=== PATIENT | male | born 1985 | race Caucasian/White ===

== ENCOUNTER 2019-11-01 09:32 | Emergency (ER) | payer BC, SELFPAY ==
[2019-11-01 09:42] VITALS: BP 135/91; PULSE 100; TEMP 37.2; O2SAT 99
[2019-11-01 10:00] LABS: Basophils Percent Auto 0.3 % (0.2-1.2); Eosinophils Absolute Auto 0.2 K/mm3 (0-0.3); Eosinophils Percent Auto 1.7 % (0-4.4); Hemoglobin 17.5 g/dL (14.0-18.0); Immature Granulocyte Absolute 0.06 K/mm3 (0.00-0.031); Immature Granulocyte Percent A 0.7 % (0-0.5); Lymphocytes Absolute Auto 1.45 K/mm3 (0.9-3.2); Lymphocytes Percent Auto 16.5 % (18.3-44.2); Mean Corpuscular Hemoglobin 29.4 pg (26-34); Mean Corpuscular Volume 88.9 fl (80-100); Mean Platelet Volume 9.3 fl (7.4-10.4); Monocytes Absolute Auto 0.6 K/mm3 (0.1-0.6); Monocytes Percent Auto 7.3 % (2.6-8.5); Neutrophils Absolute Auto 6.5 K/mm3 (1.3-6.7); Neutrophils Percent Auto 73.5 % (45.5-73.1); Platelet Count Result 390 k/mm3 (150-375); Red Blood Count 5.96 M/mm3 (4.6-6.20); Red Cell Distribution Width 14.7 % (11.5-14.5); White Blood Count 8.8 K/mm3 (4.5-10.0)
[2019-11-01 10:11] LABS: Alanine Aminotransferase 29 U/L (4-50); Albumin Level 4.2 g/dL (3.5-5.1); Alkaline Phosphatase 75 U/L (38-126); Anion Gap 6 mmol/L (8-16); Aspartate Amino Transferase 35 U/L (17-59); Bilirubin,Total 1.1 mg/dL (0.2-1.3); Blood Urea Nitrogen 11 mg/dL (9-20); Calcium 9.2 mg/dL (8.4-10.2); Carbon Dioxide 31 mmol/L (22-30); Chloride 99 mmol/L (98-107); Estimated CRCL calculation 77 ml/min; Estimated Glomerular Filt Rate > 60; Glucose 85 mg/dL (75-110); Lipase 86 U/L (23-300); Potassium 5.1 mmol/L (3.4-5.0); Sodium 136 mmol/L (137-145)
[2019-11-01] MEDS: ONDANSETRON INJ 4 MG/2 ML VIAL IV PUSH (10:34)
[2019-11-01] MEDS: SODIUM CHLORIDE 0.9% IV 1,000 ML 999 ML IV CONT (10:34)
[2019-11-01 10:49] LABS: Add Urine Microscopic? YES; Appearance Urine Clear (Clear); Bacteria Urine Trace /hpf; Bilirubin Urine 1+ (Negative); Blood Urine Negative (Negative); Color Urine Yellow (Yellow); Glucose Urine UA Negative (Negative); Ketones Urine Negative (Negative); Leukocyte Esterase Ur Trace LEU/UL (Negative); Mucus Urine Rare /lpf; Nitrate Urine Negative (Negative); Protein Urine 1+ mg/dL (Negative); Specific Grav Ur 1.028 (1.001-1.035); WBC Urine 0-3 /hpf
--- NOTE | 2019-11-01 11:03 | ED.NAVMDI ---
HPI - Nausea/Vomiting/Diarrhea General Chief complaint: Nausea/Vomiting/Diarrhea Stated complaint: n/v, headache, fatigue Time Seen by Provider: 11/01/19 10:11 Source: patient and family Mode of arrival: ambulatory Limitations: no limitations History of Present Illness HPI Narrative: Patient presents with chief complaint of diffuse abdominal pain accompanied by nausea and a few episodes of vomiting that [place] Patient states that he has chronic abdominal symptoms which is managed by Dr. Willis at [facility]. Patient reports having negative scope with only findings of slight inflammation. He states that he has been started on amitriptyline and pantoprazole which has seemed to help his symptoms until [place] Patient reports sensations of gassiness and bloatedness. Patient denies blood in his vomit. Patient denies fever chills or diarrhea. Patient denies blood or mucus in his stool. Patient states that he went to work but was feeling fatigued and slightly dehydrated so he was told to come to be evaluated. 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 Related Data Home Medications Medication Instructions Recorded Confirmed adalimumab [Humira] 0 SUBCUT .COMPLEX 11/01/19 lactobacillus combination no.4 3,000 mmu cells PO DAILY 11/01/19 [Probiotic] nortriptyline 11/01/19 pantoprazole PO 11/01/19 Allergies Allergy/AdvReac Type Severity Reaction Status Date / Time No Known Allergies Allergy Verified 11/01/19 09:47 Review of Systems Review of Systems: Narrative: CONSTITUTIONAL: Denies fever, chills, or sweats. EYES: Denies visual changes, redness, or discharge. ENT: Denies rhinorrhea, congestion, sore throat, or otalgia. CARDIOVASCULAR: Denies chest pain, palpitations, or edema. RESPIRATORY: Denies cough or dyspnea. GASTROINTESTINAL: Reports abdominal pain, nausea, vomiting, denies diarrhea. GENITOURINARY: Denies dysuria or hematuria. SKIN: Denies rash or itching. MUSCULOSKELETAL: Denies back pain, joint pain, or myalgia. NEUROLOGIC: Denies headache, numbness, dizziness, or weakness. [facility] Social History Social History Gender identity (if verbalized by the patient): Male Exam Narrative: Exam Narrative: GENERAL: Well-appearing, well-nourished, and in no acute distress. HEAD: Normocephalic, atraumatic. EYES: PERRLA and EOMI. ENT: Nares clear, no rhinorrhea or epistaxis. Mucous membranes moist. Oropharynx without tonsillar hypertrophy exudate or other lesions. Bilateral TMs pearly moulton nonbulging NECK: Supple. Range of motion intact. CHEST: Clear to auscultation. No respiratory distress. No wheezes rales or rhonchi HEART: Regular rate and rhythm. ABDOMEN: Soft, mildly diffusely tender with palpation, nondistended, normal active bowel sounds. No ascites appreciated. EXTREMITIES: Normal range of motion. No edema. SKIN: Warm, dry, no rash. NEURO: No focal deficits. Alert and oriented x3. PSYCH: Normal mood and affect. Course Vital Signs Vital signs: Vital Signs Temperature 98.9 F 11/01/19 09:42 Pulse Rate 100 11/01/19 09:42 Blood Pressure 135/91 H 11/01/19 09:42 Pulse Oximetry 99 11/01/19 09:42 Temperature 98.9 F 11/01/19 09:42 Pulse Rate 77 11/01/19 11:24 Respiratory Rate 18 11/01/19 11:24 Blood Pressure 135/75 11/01/19 11:24 Pulse Oximetry 98 11/01/19 11:24 MDM - Nausea/Vomiting/Diarrhea MDM Narrative Medical decision making narrative: Patient's lab work and urinalysis are insignificant. Patient states that his symptoms are typical of his flares. 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 Patient has been given medications to help with his symptoms and will be discharged with Zofran for nausea. Patient instructed to contact his gastroenterolo
[2019-11-01 11:24] VITALS: BP 135/75; PULSE 77; RESP 18; O2SAT 98
== END 2019-11-01 11:25 | disposition home or self-care (01) ==
PROVIDERS: Emergency Provider Emergency Medicine
DX: K52.9 Noninfective gastroenteritis and colitis, unspecified (principal)
CPT/HCPCS: 36415; 80053; 81001; 83690; 85025; 96365; 96375; 99284; J0131; J2405; J7030

== ENCOUNTER 2020-11-21 09:45 | Outpatient (CLI) | payer BC, SELFPAY ==
--- NOTE | ~2020-11-21 | NM_ITS ---
EXAM: NM gastric emptying study DATE: 11/21/2020 12:56 INDICATION: Abdominal distention TECHNIQUE: A gastric emptying study was performed using the methodology of Mustapha BOWDEN, et al. J Nucl Med 2007; 48:568-572. The patient was given a meal consisting of 2 scrambled eggs labeled with 0.996 mCi Tc-99m sulfur colloid, 2 slices of toast, two packages of jam, and approximately 120 mL of water . Simultaneous anterior and posterior 1-min images of the abdomen were obtained with the patient supi ne at multiple time points over a total period of 4 hours. The geometric mean of anterior and posteri or views was determined, and the percentage retention was calculated for each time point. COMPARISON: None. FINDINGS: Gastric retention of the radiotracer-labeled meal was 64%, 48%, and 19% at the 1-hour, 2-hour, and 4- hour time points, respectively. With this technique, apparent rapid gastric emptying is suggested by <30% gastric retention at 1 hour. Delayed gastric emptying is defined by gastric retention of >90% at 1 hour, >60% retention at 2 hours, or >10% retention at 4 hours. IMPRESSION: 1. Delayed gastric emptying. Reviewed, dictated and finalized at location [facility].
== END 2020-11-21 09:46 | disposition home or self-care (01) ==
PROVIDERS: PCP Internal Medicine; Visit Provider Nurse Practitioner Family
DX: R14.0 Abdominal distension (gaseous) (principal); K30 Functional dyspepsia
CPT/HCPCS: 78264; A9541

== ENCOUNTER → 2021-04-05 02:49 | Outpatient (CLI) | payer BC, SELFPAY ==
[2021-04-05 18:24] LABS: SARS-CoV-2 RNA PCR Negative
== END ==
PROVIDERS: PCP Internal Medicine; Visit Provider Internal Medicine Gastroenterology
DX: Z01.812 Encounter for preprocedural laboratory examination (principal); Z20.822 Contact with and (suspected) exposure to COVID-19
CPT/HCPCS: C9803; U0003; U0005

== ENCOUNTER 2021-04-06 11:07 | Emergency (ER) | payer BC, SELFPAY ==
--- NOTE | ~2021-04-06 | CT_ITS ---
EXAMINATION: CT abdomen pelvis w con DATE: 04/06/2021 14:56 INDICATION: Right lower quadrant abdominal pain. Nausea. History of inguinal hernia. TECHNIQUE: Computed tomography (CT) of the abdomen and pelvis was performed with 100 cc Omnipaque 350 intravenous contrast. Automated exposure control and iterative reconstruction technique were employe d. Exam dose: 319.67 mGy-cm total exam DLP. COMPARISON: None. FINDINGS: The lung bases are clear of infiltrate or consolidation. Normal heart size. No pericardial or pleural effusion. The liver, gallbladder, bile ducts, pancreas, pancreatic duct and spleen are normal. Normal morphology of the adrenal glands. No renal mass lesion or urinary tract calculus or hydroureteronephrosis. The urinary bladder and pros leyva gland and seminal vesicles are unremarkable. Normal caliber of the abdominal aorta. No intraperitoneal or retroperitoneal or pelvic mass lesion or adenopathy or ascites. Normal appendix. No bowel obstruction, bowel wall thickening, pneumatosis or intraperitoneal free air . Included skeletal structures are unremarkable. IMPRESSION: Normal appendix Reviewed, dictated and finalized at [facility]. Reviewed, dictated and finalized at location A. OL BASED THERAPIST IMPRESSION: Normal appendix
[2021-04-06 11:11] VITALS: BP 124/88; PULSE 67; RESP 16; TEMP 36.9; O2SAT 99
--- NOTE | 2021-04-06 13:18 | ED.ABDPAIN ---
HPI - Abdominal Pain General Chief Complaint: Abdominal Pain Stated Complaint: hernia Time Seen by Provider: 04/06/21 13:14 Source: patient Limitations: no limitations History of Present Illness HPI narrative: Patient is 35 years old white male presents with right lower quadrant pain radiating to right testicle started 2 days ago. History of right inguinal hernia. Patient denies any fever, chills, vomiting, diarrhea, constipation, urinary symptoms. Patient reports that the pain is associated with nausea Related Data Home Medications Medication Instructions Recorded Confirmed adalimumab [Humira] 0 SUBCUT .COMPLEX 11/01/19 10/16/20 Allergies Allergy/AdvReac Type Severity Reaction Status Date / Time No Known Allergies Allergy Verified 04/06/21 13:32 Review of Systems Review of Systems: CONSTITUTIONAL: Denies fever, chills, or sweats. EYES: Denies visual changes, redness, or discharge. ENT: Denies rhinorrhea, congestion, sore throat, or otalgia. CARDIOVASCULAR: Denies chest pain, palpitations, or edema. RESPIRATORY: Denies cough or dyspnea. GASTROINTESTINAL: Right lower quadrant pain GENITOURINARY: Denies dysuria or hematuria. SKIN: Denies rash or itching. MUSCULOSKELETAL: Denies back pain, joint pain, or myalgia. NEUROLOGIC: Denies headache, numbness, or weakness. PSYCHIATRIC: Denies anxiety or depression. 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 No organomegaly, quiet bowel sounds, testicular exam showed no abnormality except for mild tenderness right testicle, no mass, no redness or rash Vascular: Normal peripheral pulses, normal capillary refill. 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 as tested, no gross motor deficit Course Course Emergency Course: Stable Consultations Consultation #1: DR KILGORE Asked patient to call my office Thursday Date: 04/06/21 Time: 16:40 Vital Signs Vital signs: Vital Signs Temperature 36.9 C 04/06/21 11:11 Pulse Rate 67 04/06/21 11:11 Respiratory Rate 16 04/06/21 11:11 Blood Pressure 124/88 04/06/21 11:11 Pulse Oximetry 99 04/06/21 11:11 Temperature 36.9 C 04/06/21 11:11 Pulse Rate 54 L 04/06/21 15:20 Respiratory Rate 16 04/06/21 15:20 Blood Pressure 117/68 04/06/21 15:20 Pulse Oximetry 97 04/06/21 15:20 MDM - Abdominal Pain MDM Narrative Medical decision making narrative: Reducible inguinal hernia Differential Diagnosis Differential diagnosis: Likely abdominal pain, acute appendicitis, calculus of kidney,
[2021-04-06 13:28] VITALS: BP 125/73; PULSE 57; RESP 18; O2SAT 96
--- NOTE | 2021-04-06 13:35 | PC.NURSE ---
Dr. Tamez at bedside, small right inguinal hernia reduced manually.
[2021-04-06 13:58] LABS: Basophils Percent Auto 0.5 % (0.2-1.2); Eosinophils Percent Auto 0.5 % (0-4.4); Hematocrit 49.9 % (42.0-52.0); Hemoglobin 17.4 g/dL (14.0-18.0); Immature Granulocyte Absolute 0.01 K/mm3 (0.00-0.031); Immature Granulocyte Percent A 0.2 % (0-0.5); Lymphocytes Absolute Auto 1.29 K/mm3 (0.9-3.2); Lymphocytes Percent Auto 21.1 % (18.3-44.2); Mean Corpuscular HGB Conc 34.9 g/dl (32-36); Mean Corpuscular Hemoglobin 30.7 pg (26-34); Mean Corpuscular Volume 88.2 fl (80-100); Monocytes Absolute Auto 0.5 K/mm3 (0.1-0.6); Monocytes Percent Auto 7.7 % (2.6-8.5); Neutrophils Absolute Auto 4.3 K/mm3 (1.3-6.7); Platelet Count Result 217 k/mm3 (150-375); Red Blood Count 5.66 M/mm3 (4.6-6.20); Red Cell Distribution Width 11.8 % (11.5-14.5); White Blood Count 6.1 K/mm3 (4.5-10.0)
[2021-04-06] MEDS: SODIUM CHLORIDE 0.9% IV 1,000 ML 999 ML IV CONT (14:08)
[2021-04-06 14:28] LABS: Add Urine Microscopic? YES; Appearance Urine Clear (Clear); Bilirubin Urine Negative (Negative); Blood Urine Negative (Negative); Color Urine Yellow (Yellow); Glucose Urine UA Negative (Negative); Ketones Urine Negative (Negative); Leukocyte Esterase Ur Negative LEU/UL (Negative); Mucus Urine Rare /lpf; Nitrate Urine Negative (Negative); Protein Urine Negative (Negative); Specific Grav Ur 1.019 (1.001-1.035); Squamous Epithelial Cell Urine Rare /hpf (Few); Urobilinogen Urine Negative mg/dL (<2.0)
[2021-04-06 14:33] LABS: Alanine Aminotransferase 36 U/L (4-50); Albumin Level 4.5 g/dL (3.5-5.1); Alkaline Phosphatase 67 U/L (38-126); Anion Gap 4 mmol/L (8-16); Aspartate Amino Transferase 32 U/L (17-59); Bilirubin,Total 0.9 mg/dL (0.2-1.3); Blood Urea Nitrogen 15 mg/dL (9-20); Calcium 9.9 mg/dL (8.4-10.2); Carbon Dioxide 30 mmol/L (22-30); Chloride 104 mmol/L (98-107); Estimated CRCL calculation 76 ml/min; Estimated Glomerular Filt Rate > 60; Glucose 90 mg/dL (65-110); Lipase 73 U/L (23-300); Potassium 4.1 mmol/L (3.4-5.0); Sodium 138 mmol/L (137-145)
[2021-04-06 15:20] VITALS: BP 117/68; PULSE 54; RESP 16; O2SAT 97
--- NOTE | 2021-04-06 15:21 | PC.NURSE ---
Pt states pain has improved somewhat and I don't feel like I was kicked in the balls anymore . Made aware of pending results. Denies needs at present.
--- NOTE | 2021-04-06 15:49 | PC.NURSE ---
Pt's IV dc'd, discussed d/c instructions with patient. Explained need to follow up with Dr. Pandey. Pt reports that pain continues to right inguinal area and he feels like the area may be swollen again. Dr. Tamez made aware and at bedside, and again right inguinal hernia reduced. Pt had increased pain with reduction.
--- NOTE | 2021-04-06 15:51 | PC.NURSE ---
Dr. Tamez preparing to contact Dr. Pandey.
--- NOTE | 2021-04-06 16:47 | PC.NURSE ---
Note Dr. Tamez speaking with patient after speaking with Dr. Pandey.
== END 2021-04-06 16:50 | disposition home or self-care (01) ==
PROVIDERS: Emergency Provider Emergency Medicine; PCP Internal Medicine
DX: K40.90 Unilateral inguinal hernia, without obstruction or gangrene, not specified as recurrent (principal)
CPT/HCPCS: 36415; 74177; 80053; 81001; 83690; 85025; 96360; 99284; J7030; Q9967

== ENCOUNTER 2021-04-08 00:48 | Day surgery (SDC) | payer BC, SELFPAY ==
[2021-03-27 09:48] VITALS: BMI 25.9
[2021-04-08 10:28] VITALS: BP 118/81; PULSE 69; RESP 16; TEMP 36.6; O2SAT 98; BMI 25.4
--- NOTE | 2021-04-08 10:30 | P.PNAN_ITS ---
Anes - Initial Pre Proc Eval Procedure: Operation Date: 04/08/21 11:30 Proposed Procedures p Esophagogastroduodenoscopy - Vasyl Cueva MD Date/Time: 04/08/21 10:30 Surgeon: Vasyl Cueva MD Pre Op Diagnosis: abdominal distension Patient Data Age: 35 Gender: M Height: 1.73 m Weight: 76 kg Last Vital Signs Temp 36.6 C 04/08/21 10:28 Pulse 69 04/08/21 10:28 Resp 16 04/08/21 10:28 BP 118/81 04/08/21 10:28 Pulse Ox 98 04/08/21 10:28 Allergies Allergy/AdvReac Type Severity Reaction Status Date / Time No Known Allergies Allergy Verified 04/08/21 10:27 Home Medications Medication Instructions Recorded Confirmed Type adalimumab [Humira] 0 SUBCUT .COMPLEX 11/01/19 10/16/20 History zolpidem 12.5 mg tablet,extended 12.5 mg PO QHS #30 tablet 02/18/21 03/27/21 Rx release,multiphase pantoprazole 40 mg tablet,delayed 40 mg PO DAILY #90 tablet 03/20/21 03/27/21 Rx release Patient hx anesthesia problems: none Family hx anesthesia problems: none Results Review: All pre-operative results and documents have been reviewed as part of the pre-operative evaluation. 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 Informed Consent: The patient's anesthetic plan and its attendant risks and benefits were discussed with the patient/family/POA. Questions were solicited and answers provided to the satisfaction of the patient/family/POA.
[2021-04-08] MEDS: LACTATED RINGERS 1,000 ML 150 ML IV CONT (10:34)
--- NOTE | 2021-04-08 11:09 | PM.HPGS ---
History of Present Illness History of Present Illness Consent: Risks, benefits, and alternatives have been discussed and questions answered. Patient agrees to proceed with procedure. Chief complaint: abdominal distension Narrative: Ronald Lizama is a 35 year old male with bloating and abdominal distension after eating anything, had gastritis about 2 years ago using pantoprazole. History of psoriasis on humira, had normal CT scan a/p, GES showed gastroparesis but never used reglan. Serology for celiac normal. Review of Systems Constitutional: Constitutional: Denies headache(s) and Denies weakness Eyes: Eyes: Denies blurry vision ENT: Reports Normal hearing present, Denies headache(s) and Denies neck pain Cardiovascular: Cardiovascular: Denies chest pain and Denies dyspnea Respiratory: Respiratory: Denies dyspnea Gastrointestinal: Gastrointestinal: Reports no additional gastrointestinal complaints Genitourinary: Genitourinary: Denies dysuria Musculoskeletal: Musculoskeletal: Denies neck pain Integumentary/Breasts: Skin/Breast: Denies dry skin Neurologic: Reports Normal hearing present, Denies headache(s) and Denies weakness Psychiatric: Psychiatric: Denies anxiety Endocrine: Endocrine: Denies change in body appearance Hematologic/Lymphatic: Hematologic/Lymphatic: Denies easy bleeding Allergic/Immunologic: Allergic/Immunologic: Denies urticaria PMF Past Medical History Medical History (Updated 04/08/21 @ 11:10 by Vasyl Cueva MD) Gastroparesis Surgical History Surgical History H/O excision of mass 08/09/20 excision of back cyst H/O umbilical hernia repair 1993 Family History Family History Other Cerebrovascular accident Diabetes mellitus Throat cancer Social History Social History Smoking status: Never smoker Second hand tobacco smoke exposure: Yes Alcohol intake: never Substance use: never Substance use type: does not use 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 Gender identity (if verbalized by the patient): Male Spiritual care concerns: No Meds Home Medications and Allergies Home Medications Medication Instructions Recorded Confirmed Type adalimumab [Humira] 0 SUBCUT .COMPLEX 11/01/19 10/16/20 History zolpidem 12.5 mg tablet,extended 12.5 mg PO QHS #30 tablet 02/18/21 03/27/21 Rx release,multiphase pantoprazole 40 mg tablet,delayed 40 mg PO DAILY #90 tablet 03/20/21 03/27/21 Rx release Allergies Allergy/AdvReac Type Severity Reaction Status Date / Time No Known Allergies Allergy Verified 04/08/21 10:27 Vital Signs Vital Signs - 24 hr 04/08/21 10:28 Temperature 98 F Pulse Rate 69 Respiratory Rate 16 Blood Pressure 118/81 Pulse Oximetry 98 Exam Const: General: comfortable and no acute distress HENMT: General nose exam: Normal nares present Eyes: General: appearance normal, both eyes and all related structures Neck: Neck: no JVD Resp: Auscultation: clear to auscultation bilaterally Cardio: Rate: regular rate Rhythm: regular rhythm GI: Inspection: non-distended GI Palp: Yes Soft to palpation Skin: General skin exam: normal color Neuro: General: gait normal Speech: normal speech Extrem: General: normal to inspection Psych: Mental Status: mental status grossly normal Assessment and Plan Assessment and plan (1) Bloating: Code(s): R14.0 - Abdominal distension (gaseous) Status: Acute Assessment and Plan: egd with bx, probably related to gastroparesis (2) Gastroparesis: Code(s): K31.84 - Gastroparesis Status: Acute Assessment and Plan: will start low dose of reglan before meals to see if will help with symptoms with follow-up office.
[2021-04-08] MEDS: BENZOCAINE (*SP) 60 ML SPRAY CAN (HURRICAINE) 1 SPRAY MUCOUS MEM (11:13)
[2021-04-08 11:21] VITALS: BP 112/84; PULSE 87; RESP 16; O2SAT 98
[2021-04-08 11:31] VITALS: BP 110/83; PULSE 77; RESP 16; O2SAT 100
[2021-04-08 11:41] VITALS: BP 113/82; PULSE 66; RESP 12; O2SAT 97
== END 2021-04-08 11:51 | disposition home or self-care (01) ==
PROVIDERS: PCP Internal Medicine; Visit Provider Internal Medicine Gastroenterology
PROC: 0DJ08ZZ Inspection of Upper Intestinal Tract, Via Natural or Artificial Opening Endoscopic (ICD-10-PCS; CPT 43235; principal; 2021-04-08 11:30)
DX: R14.0 Abdominal distension (gaseous) (principal); K31.84 Gastroparesis; L40.9 Psoriasis, unspecified; Z79.899 Other long term (current) drug therapy
CPT/HCPCS: 43239; 88305; J2704; J7120

== ENCOUNTER 2021-06-27 17:31 | Outpatient (CLI) | payer BC, SELFPAY | END 2021-06-27 17:32 | disposition home or self-care (01) | LOC: ANHLAB 17:33 | PROVIDERS: PCP Internal Medicine; Visit Provider Internal Medicine | DX: Z20.2 Contact with and (suspected) exposure to infections with a predominantly sexual mode of transmission (principal) | CPT/HCPCS: 87491; 87591 ==

== ENCOUNTER 2021-09-12 15:08 | Outpatient (CLI) | payer BC, SELFPAY ==
--- NOTE | ~2021-09-12 | XR_ITS ---
XR abdomen/kub 1V DATE: 09/12/2021 15:33 INDICATION: Diffuse abdominal pain for years. Vomiting, diarrhea. TECHNIQUE: AP projection, 2 views COMPARISON: 04/06/2019 CT abdomen pelvis FINDINGS: Normal heart size. Lung bases are clear. Associated as are intact. No visceromegaly is detected. No significant abnormal calcification. No andreea dence of bowel obstruction. Included skeletal structures are unremarkable. IMPRESSION: No significant abnormality Reviewed, dictated and finalized at [facility]. Reviewed, dictated and finalized at location [facility]. IMPRESSION: No significant abnormality
== END 2021-09-12 15:09 | disposition home or self-care (01) ==
PROVIDERS: PCP Internal Medicine; Visit Provider Nurse Practitioner
DX: R10.9 Unspecified abdominal pain (principal)
CPT/HCPCS: 74018

== ENCOUNTER 2021-10-28 01:07 | Day surgery (SDC) | payer BC, SELFPAY ==
[2021-10-16 13:36] VITALS: BMI 25.2
[2021-10-28 11:42] VITALS: BP 122/74; PULSE 95; RESP 18; TEMP 36.4; O2SAT 98; BMI 23.3
[2021-10-28] MEDS: LACTATED RINGERS 1,000 ML 150 ML IV CONT (11:51)
--- NOTE | 2021-10-28 12:03 | P.PNAN_ITS ---
Anes - Initial Pre Proc Eval Procedure: Operation Date: 10/28/21 13:00 Proposed Procedures p Colonoscopy - Vasyl Cueva MD Date/Time: 10/28/21 12:03 Surgeon: Vasyl Cueva MD Pre Op Diagnosis: rectal bleeding Patient Data Age: 36 Gender: M Height: 1.7 m Weight: 67.5 kg Last Vital Signs Temp 97.6 F 10/28/21 11:42 Pulse 95 10/28/21 11:42 Resp 18 10/28/21 11:42 BP 122/74 10/28/21 11:42 Pulse Ox 98 10/28/21 11:42 O2 Del Method Room Air 10/28/21 11:42 Allergies Allergy/AdvReac Type Severity Reaction Status Date / Time No Known Allergies Allergy Verified 10/28/21 11:41 Home Medications Medication Instructions Recorded Confirmed Type pantoprazole 40 mg tablet,delayed 40 mg PO DAILY #90 tabs 08/22/21 10/16/21 Rx release prucalopride 1 mg tablet 2 mg PO DAILY 1 month #60 tabs 09/12/21 10/16/21 Rx (Motegrity) ixekizumab 80 mg/mL subcutaneous 80 mg subcut MONTHLY 10/16/21 10/16/21 History auto-injector (Taltz Autoinjector) zolpidem 12.5 mg tablet,extended 12.5 mg PO HS 10/16/21 10/16/21 History release,multiphase Patient hx anesthesia problems: none Family hx anesthesia problems: none Results Review: All pre-operative results and documents have been reviewed as part of the pre- operative evaluation. [facility] Past Medical History Medical History (Updated 10/17/21 @ 11:56 by Akash Tapia DO) Constipation Gastroparesis GERD (gastroesophageal reflux disease) Irritable bowel syndrome with constipation Stool mucus Surgical History Surgical History H/O excision of mass 08/09/20 excision of back cyst H/O umbilical hernia repair 1993 Family History Family History Mother Cerebrovascular accident COPD (chronic obstructive pulmonary disease) Other Diabetes mellitus Throat cancer Social History Social History Smoking status: Never smoker Second hand tobacco smoke exposure: Yes Alcohol intake: never Substance use: never Substance use type: does not use Living arrangements: with family 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 Informed Consent: The patient's anesthetic plan and its attendant risks and benefits were discussed with the patient/family/POA. Questions were solicited and answers provided to the satisfaction of the patient/family/POA.
--- NOTE | 2021-10-28 12:29 | PM.HPGS ---
History of Present Illness History of Present Illness Consent: Risks, benefits, and alternatives have been discussed and questions answered. Patient agrees to proceed with procedure. Chief complaint: rectal bleeding Narrative: Ronald Lizama is a 36 year old male with gastroparesis, bloating and ibs-constipation, insurance did not approve motegrity Review of Systems Constitutional: Constitutional: Denies headache(s) and Denies weakness Eyes: Eyes: Denies blurry vision ENT: Reports Normal hearing present, Denies headache(s) and Denies neck pain Cardiovascular: Cardiovascular: Denies chest pain and Denies dyspnea Respiratory: Respiratory: Denies dyspnea Gastrointestinal: Gastrointestinal: Reports no additional gastrointestinal complaints Genitourinary: Genitourinary: Denies dysuria Musculoskeletal: Musculoskeletal: Denies neck pain Integumentary/Breasts: Skin/Breast: Denies dry skin Neurologic: Reports Normal hearing present, Denies headache(s) and Denies weakness Psychiatric: Psychiatric: Denies anxiety Endocrine: Endocrine: Denies change in body appearance Hematologic/Lymphatic: Hematologic/Lymphatic: Denies easy bleeding Allergic/Immunologic: Allergic/Immunologic: Denies urticaria PMF Past Medical History Medical History (Updated 10/17/21 @ 11:56 by Akash Tapia DO) Constipation Gastroparesis GERD (gastroesophageal reflux disease) Irritable bowel syndrome with constipation Stool mucus Surgical History Surgical History H/O excision of mass 08/09/20 excision of back cyst H/O umbilical hernia repair 1993 Family History Family History Mother Cerebrovascular accident COPD (chronic obstructive pulmonary disease) Other Diabetes mellitus Throat cancer Social History Social History Smoking status: Never smoker Second hand tobacco smoke exposure: Yes Alcohol intake: never Substance use: never Substance use type: does not use Living arrangements: with family 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 Gender identity (if verbalized by the patient): Male Spiritual care concerns: No Meds Home Medications and Allergies Home Medications Medication Instructions Recorded Confirmed Type pantoprazole 40 mg tablet,delayed 40 mg PO DAILY #90 tabs 08/22/21 10/16/21 Rx release prucalopride 1 mg tablet 2 mg PO DAILY 1 month #60 tabs 09/12/21 10/16/21 Rx (Motegrity) ixekizumab 80 mg/mL subcutaneous 80 mg subcut MONTHLY 10/16/21 10/16/21 History auto-injector (Taltz Autoinjector) zolpidem 12.5 mg tablet,extended 12.5 mg PO HS 10/16/21 10/16/21 History release,multiphase Allergies Allergy/AdvReac Type Severity Reaction Status Date / Time No Known Allergies Allergy Verified 10/28/21 11:41 Vital Signs Vital Signs - 24 hr 10/28/21 11:42 Temperature 97.6 F Pulse Rate 95 Respiratory Rate 18 Blood Pressure 122/74 Pulse Oximetry 98 Oxygen Delivery Room Air Exam Const: General: comfortable and no acute distress HENMT: General nose exam: Normal nares present Eyes: General: appearance normal, both eyes and all related structures Neck: Neck: no JVD Resp: Auscultation: clear to auscultation bilaterally Cardio: Rate: regular rate Rhythm: regular rhythm GI: Inspection: non-distended GI Palp: Yes Soft to palpation Skin: General skin exam: normal color Neuro: General: gait normal Speech: normal speech Extrem: General: normal to inspection Psych: Mental Status: mental status grossly normal Assessment and Plan Assessment and plan (1) Abdominal pain: Code(s): R10.9 - Unspecified abdominal pain Status: Acute (2) Constipation: Code(s): K59.00 - Constipation, unspecified Status: Acute Assessment and Plan
[2021-10-28 12:54] VITALS: BP 97/61; PULSE 73; RESP 20; O2SAT 97
[2021-10-28 13:04] VITALS: BP 105/79; PULSE 59; RESP 20; O2SAT 99
[2021-10-28 13:14] VITALS: BP 110/75; PULSE 74; RESP 17; O2SAT 99
== END 2021-10-28 13:24 | disposition home or self-care (01) ==
PROVIDERS: PCP Internal Medicine; Visit Provider Internal Medicine Gastroenterology
PROC: 0DJD8ZZ Inspection of Lower Intestinal Tract, Via Natural or Artificial Opening Endoscopic (ICD-10-PCS; CPT 45378; principal; 2021-10-28 13:00)
DX: Z12.11 Encounter for screening for malignant neoplasm of colon (principal); D12.2 Benign neoplasm of ascending colon; K59.00 Constipation, unspecified; K31.84 Gastroparesis; R14.0 Abdominal distension (gaseous); K58.1 Irritable bowel syndrome with constipation; K21.9 Gastro-esophageal reflux disease without esophagitis; R10.9 Unspecified abdominal pain; K62.5 Hemorrhage of anus and rectum
CPT/HCPCS: 45380; 45385; 88305; J2704; J7120

== ENCOUNTER 2021-10-31 06:41 | Outpatient (CLI) | payer BC, SELFPAY ==
--- NOTE | ~2021-10-31 | MR_ITS ---
EXAMINATION: MR pelvis wo con DATE: 10/31/2021 07:33 INDICATION: Chronic pelvic pain in male. TECHNIQUE: Magnetic resonance imaging (MRI) of the pelvis was performed without intravenous contrast. COMPARISON: CT abdomen and pelvis 04/06/2021 FINDINGS: There are no dilated loops of bowel. There is prominent fat in the inguinal canals. There are no path ologically enlarged lymph nodes. There is no free intraperitoneal fluid. Bone alignment is normal. No fracture. There is mild osteoarthritis of the hips. No joint effusion. The iliopsoas tendons and glu teus minimus and gluteus medius tendons are normal. There is mild tendinopathy of right hamstring maria isabel gin. IMPRESSION: 1. Prominent fat in the inguinal canals that may be small hernias. Reviewed, dictated and finalized at location A.
== END 2021-10-31 06:42 | disposition home or self-care (01) ==
LOC: ANHIMG 06:43
PROVIDERS: PCP Internal Medicine; Visit Provider Internal Medicine
DX: R10.2 Pelvic and perineal pain (principal)
CPT/HCPCS: 72195

== ENCOUNTER 2021-11-15 12:37 | Outpatient (CLI) | payer BC, SELFPAY ==
--- NOTE | ~2021-11-15 | XR_ITS ---
EXAMINATION: XR chest 2V DATE: 11/15/2021 13:13 INDICATION: Abnormal weight loss TECHNIQUE: PA and lateral views of the chest are obtained. COMPARISON: None available FINDINGS: The lungs are free of acute opacities. No pleural effusion or pneumothorax. The cardiomedia stinal silhouette is normal. The visualized bones and soft tissues are unremarkable. IMPRESSION: 1. No acute cardiopulmonary abnormality. Reviewed, dictated and finalized at location B.
== END 2021-11-15 12:38 | disposition home or self-care (01) ==
PROVIDERS: PCP Internal Medicine; Visit Provider Internal Medicine
DX: R53.83 Other fatigue (principal); R63.4 Abnormal weight loss
CPT/HCPCS: 36415; 71046; 84443

== ENCOUNTER 2022-04-18 15:52 | Outpatient (CLI) | payer BC, SELFPAY ==
[2022-04-18 16:18] LABS: Basophils Percent Auto 0.5 % (0.2-1.2); Eosinophils Absolute Auto 0.1 K/mm3 (0-0.3); Eosinophils Percent Auto 1.3 % (0-4.4); Hematocrit 45.9 % (42.0-52.0); Hemoglobin 15.6 g/dL (14.0-18.0); Immature Granulocyte Absolute 0.02 K/mm3 (0.00-0.031); Immature Granulocyte Percent A 0.3 % (0-0.5); Lymphocytes Absolute Auto 1.78 K/mm3 (0.9-3.2); Lymphocytes Percent Auto 28.8 % (18.3-44.2); Mean Corpuscular Hemoglobin 29.4 pg (26-34); Mean Corpuscular Volume 86.6 fl (80-100); Monocytes Absolute Auto 0.4 K/mm3 (0.1-0.6); Monocytes Percent Auto 6.1 % (2.6-8.5); Neutrophils Absolute Auto 3.9 K/mm3 (1.3-6.7); Platelet Count Result 235 k/mm3 (150-375); Red Cell Distribution Width 12.7 % (11.5-14.5); White Blood Count 6.2 K/mm3 (4.5-10.0)
[2022-04-18 16:36] LABS: Alanine Aminotransferase 23 U/L (6-50); Albumin Level 4.8 g/dL (3.5-5.1); Alkaline Phosphatase 59 U/L (38-126); Anion Gap 6 mmol/L (8-16); Aspartate Amino Transferase 27 U/L (17-59); Bilirubin,Total 0.8 mg/dL (0.2-1.3); Blood Urea Nitrogen 13 mg/dL (9-20); Calcium 9.1 mg/dL (8.4-10.2); Carbon Dioxide 33 mmol/L (22-30); Chloride 101 mmol/L (98-107); Estimated Glomerular Filt Rate > 60; Glucose 112 mg/dL (65-110); Potassium 4.1 mmol/L (3.4-5.0); Sodium 140 mmol/L (137-145)
[2022-04-24 11:00] LABS: Testosterone Total 567 ng/dL (250-1100)
== END 2022-04-18 15:53 | disposition home or self-care (01) ==
LOC: ANHLAB 15:53
PROVIDERS: PCP Internal Medicine; Visit Provider Nurse Practitioner Family
DX: R53.83 Other fatigue (principal)
CPT/HCPCS: 36415; 80053; 84403; 84443; 85025

== ENCOUNTER 2022-05-08 09:44 | Emergency (ER) | payer BC, SELFPAY ==
--- NOTE | ~2022-05-08 | CT_ITS ---
EXAMINATION: CT abdomen pelvis w con DATE: 05/08/2022 10:44 INDICATION: Lower abdominal pain. History of diverticulitis. TECHNIQUE: Computed tomography (CT) of the abdomen and pelvis was performed with 100 cc Omnipaque 350 intravenous contrast. The dose-length product was 248.74 mGy-cm. Automated exposure control and iter ative reconstruction technique were employed. COMPARISON: CT dated 04/06/2021. FINDINGS: Lung bases are unremarkable. Heart size normal. No significant pleural or pericardial effus ion. No significant vascular abnormality. No lymphadenopathy. No free air or free fluid. No evidence for acute diverticulitis. Fatty infiltration of the liver. Gallbladder is present. The spleen, pancreas, adrenal glands and kid neys are unremarkable. No acute osseous abnormality. IMPRESSION: 1. No acute abdominal abnormality. Reviewed, dictated and finalized at location L. FORESTER
[2022-05-08 09:50] VITALS: BP 110/83; PULSE 103; RESP 14; TEMP 37.3; O2SAT 97
[2022-05-08 09:59] VITALS: BP 113/79; PULSE 87; RESP 12; O2SAT 97
[2022-05-08 10:01] VITALS: BP 110/79; PULSE 80; RESP 18; O2SAT 97
[2022-05-08 10:05] VITALS: BP 110/79; PULSE 80; RESP 12; O2SAT 96
[2022-05-08 10:12] LABS: Basophils Percent Auto 0.3 % (0.2-1.2); Hemoglobin 15.6 g/dL (14.0-18.0); Immature Granulocyte Absolute 0.01 K/mm3 (0.00-0.031); Immature Granulocyte Percent A 0.3 % (0-0.5); Lymphocytes Absolute Auto 1.02 K/mm3 (0.9-3.2); Lymphocytes Percent Auto 27.8 % (18.3-44.2); Mean Corpuscular HGB Conc 33.9 g/dl (32-36); Mean Corpuscular Hemoglobin 30.2 pg (26-34); Mean Corpuscular Volume 89.1 fl (80-100); Mean Platelet Volume 10.5 fl (7.4-10.4); Monocytes Absolute Auto 0.6 K/mm3 (0.1-0.6); Monocytes Percent Auto 17.4 % (2.6-8.5); Neutrophils Percent Auto 54.2 % (45.5-73.1); Platelet Count Result 187 k/mm3 (150-375); Red Blood Count 5.16 M/mm3 (4.6-6.20); Red Cell Distribution Width 12.9 % (11.5-14.5); White Blood Count 3.7 K/mm3 (4.5-10.0)
[2022-05-08 10:26] LABS: Alanine Aminotransferase 41 U/L (6-50); Albumin Level 4.5 g/dL (3.5-5.1); Alkaline Phosphatase 61 U/L (38-126); Anion Gap 6 mmol/L (8-16); Aspartate Amino Transferase 43 U/L (17-59); Bilirubin,Total 0.7 mg/dL (0.2-1.3); Blood Urea Nitrogen 15 mg/dL (9-20); Calcium 9.1 mg/dL (8.4-10.2); Carbon Dioxide 31 mmol/L (22-30); Chloride 102 mmol/L (98-107); Estimated CRCL calculation 71 ml/min; Estimated Glomerular Filt Rate > 60; Glucose 93 mg/dL (65-110); Potassium 4.2 mmol/L (3.4-5.0); Sodium 139 mmol/L (137-145)
--- NOTE | 2022-05-08 10:28 | ED.GENADULT ---
HPI - General Adult General Chief complaint: Fever Stated complaint: Sick for 3 days Time Seen by Provider: 05/08/22 09:57 History of Present Illness HPI narrative: 37-year-old male who presented to the emergency department for a week of low-grade fever and generalized weakness. Patient states he has had some lower abdominal cramping with this. Patient reports nausea but no vomiting. Patient denies any chest pain or shortness of breath. Patient states he has felt fatigued and has not been eating or drinking very much. Patient does have a history of diverticulitis denies any prior history of colectomy Related Data Home Medications Medication Instructions Recorded Confirmed ixekizumab 80 mg/mL subcutaneous 80 mg subcut MONTHLY 10/16/21 04/24/22 auto-injector (Taltz Autoinjector) finasteride 5 mg tablet 5 mg PO DAILY 12/27/21 04/24/22 Allergies Allergy/AdvReac Type Severity Reaction Status Date / Time No Known Allergies Allergy Verified 05/08/22 10:08 Review of Systems Review of Systems: CONSTITUTIONAL: Denies fever, chills, or sweats. EYES: Denies visual changes, redness, or discharge. ENT: Denies rhinorrhea, congestion, sore throat, or otalgia. CARDIOVASCULAR: Denies chest pain, palpitations, or edema. RESPIRATORY: Denies cough or dyspnea. GASTROINTESTINAL: See HPI GENITOURINARY: Denies dysuria or hematuria. SKIN: Denies rash or itching. MUSCULOSKELETAL: Denies back pain, joint pain, or myalgia. NEUROLOGIC: Denies headache, numbness, or weakness. [facility] Past Medical History Medical History (Updated 05/08/22 @ 11:18 by Orlando Mai MD) Adenomatous colon polyp Constipation Gastroparesis GERD (gastroesophageal reflux disease) Irritable bowel syndrome with constipation Stool mucus Surgical History Surgical History H/O excision of mass 08/09/20 excision of back cyst H/O umbilical hernia repair 1993 Family History Family History Mother Cerebrovascular accident COPD (chronic obstructive pulmonary disease) Other Diabetes mellitus Throat cancer Social History Social History Smoking status: Never smoker Second hand tobacco smoke exposure: Yes Alcohol intake: never Substance use: never Substance use type: does not use Lack of Transportation: No Lack of Food: Never True Current Housing: I Have Housing Concerned About Future Housing: No Difficulty Paying Gas/Electric Bills: No Difficulty Paying for Meds: No Currently Unemployed: No Education: Decline to Answer Difficulty w/ Childcare or Family Care: Decline to Answer Living arrangements: with family Occupation/Education: occupation 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 HEAD: normocephalic, atraumatic. EYES: PERRLA/EOMI, conjunctivae clear. NOSE: Normal no drainage NECK: Supple. No adenopathy, no masses. RESPIRATORY: Airway patent, respirations nonlabored. Clear to auscultation bilaterally, no rales, rhonchi, wheezing. CARDIOVASCULAR: Regular rate and rhythm without murmurs rubs or gallops. ABDOMINAL: Soft, normal bowel sounds, lower abdominal tenderness to palpation MUSCULOSKELETAL: Moves all extremities. Strength/ROM intact, No edema, No calf tenderness. NEURO: Alert. Cranial nerves II through XII intact. Grossly intact SKIN: Warm, dry. Normal Color Course Course Emergency Course: 37-year-old male with decreased p.o. intake nausea and lower abdominal pain. Patient being treated with IV fluids. Patient declined having nausea and declined any medications for pain control. CT abdomen pelvis will be ordered to evaluate for diverticulitis. Yousif
[2022-05-08] MEDS: SODIUM CHLORIDE 0.9% IV 1,000 ML 999 ML IV CONT (10:33)
--- NOTE | 2022-05-08 10:35 | PC.NURSE ---
PT to ct scan
[2022-05-08 10:44] LABS: Influenza A QL RT-PCR Negative (Negative); Influenza B QL RT-PCR Negative (Negative); SARS-CoV-2 RNA PCR Positive
[2022-05-08 11:35] LABS: Appearance Urine Clear (Clear); Bacteria Urine None Seen /hpf; Bilirubin Urine Negative (Negative); Blood Urine Negative (Negative); Color Urine Yellow (Yellow); Glucose Urine UA Negative (Negative); Ketones Urine Negative (Negative); Leukocyte Esterase Ur Negative LEU/UL (Negative); Need Manual Microscopic Reviewed; Nitrate Urine Negative (Negative); Non Pathogenic Casts 0-2; Protein Urine Trace mg/dL (Negative); RBC Urine 21-50 /hpf (0-2); Squamous Epithelial Cell Urine None seen /hpf (Few); WBC Urine 0-5 /hpf; pH Urine 5.5 (5.0-9.0)
[2022-05-08 11:36] VITALS: BP 115/69; PULSE 70; RESP 16; O2SAT 98
[2022-05-08 11:38] LABS: Specific Grav Ur >= 1.099 (1.001-1.035)
[2022-05-08 11:39] LABS: Add Urine Microscopic? YES
== END 2022-05-08 11:48 | disposition home or self-care (01) ==
PROVIDERS: Physician Assistant; Emergency Provider Emergency Medicine; PCP Internal Medicine
DX: U07.1 COVID-19 (principal); K21.9 Gastro-esophageal reflux disease without esophagitis
CPT/HCPCS: 36415; 74177; 80053; 81001; 85025; 87636; 96360; 99284; J7030; Q9967

== ENCOUNTER 2022-09-23 11:24 | Outpatient (CLI) | payer BC, SELFPAY ==
--- NOTE | ~2022-09-23 | CT_ITS ---
EXAMINATION: CT brain wo con DATE: 09/23/2022 11:36 INDICATION: Frontal headaches. History of head injury 10 years ago TECHNIQUE: Computed tomography (CT) of the head was performed without intravenous contrast. The mA wa s adjusted according to patient size. Iterative reconstruction technique was employed. Exam dose: 64 5.69 mGy-cm total exam DLP. COMPARISON: None FINDINGS: No intracranial mass lesion or hemorrhage or cerebrovascular accident. No midline shift or mass effect. Normal moulton-white matter differentiation. Normal ventricular size. No subdural or epidur al hematoma. No fracture or bone destruction of the cranial vault. Mastoid air cells and included paranasal sinuse s are normally developed and aerated. IMPRESSION: Negative Reviewed, dictated and finalized at Location A. Reviewed, dictated and finalized at location L. IMPRESSION: Negative
== END 2022-09-23 11:25 ==
PROVIDERS: PCP Family Medicine; Visit Provider Nurse Practitioner Family
DX: R41.3 Other amnesia (principal); Z87.828 Personal history of other (healed) physical injury and trauma
CPT/HCPCS: 70450

== ENCOUNTER 2022-11-27 10:31 | Outpatient (CLI) | payer BC, SELFPAY ==
[2022-11-27 10:56] LABS: Hematocrit 50.5 % (42.0-52.0); Hemoglobin 16.8 g/dL (14.0-18.0); Mean Corpuscular HGB Conc 33.3 g/dl (32-36); Mean Corpuscular Hemoglobin 29.9 pg (26-34); Mean Platelet Volume 10.2 fl (7.4-10.4); Platelet Count Result 224 k/mm3 (150-375); Red Blood Count 5.61 M/mm3 (4.6-6.20); White Blood Count 5.7 K/mm3 (4.5-10.0)
[2022-11-27 11:08] LABS: Alanine Aminotransferase 31 U/L (6-50); Albumin Level 4.5 g/dL (3.5-5.1); Alkaline Phosphatase 52 U/L (38-126); Anion Gap 4 mmol/L (8-16); Aspartate Amino Transferase 32 U/L (17-59); Bilirubin,Total 1.2 mg/dL (0.2-1.3); Blood Urea Nitrogen 13 mg/dL (9-20); Calcium 9.3 mg/dL (8.4-10.2); Carbon Dioxide 34 mmol/L (22-30); Chloride 102 mmol/L (98-107); Estimated Glomerular Filt Rate > 60; Glucose 83 mg/dL (65-110); Potassium 4.2 mmol/L (3.4-5.0); Sodium 140 mmol/L (137-145)
== END 2022-11-27 10:32 | disposition home or self-care (01) ==
LOC: ANHLAB 10:32
PROVIDERS: PCP Family Medicine; Visit Provider Nurse Practitioner
DX: R14.0 Abdominal distension (gaseous) (principal)
CPT/HCPCS: 36415; 80053; 84443; 85027

== ENCOUNTER 2022-12-02 08:34 | Outpatient (CLI) | payer BC, SELFPAY ==
--- NOTE | ~2022-12-02 | XR_ITS ---
EXAMINATION: XR UGIAC w small bowel DATE: 12/02/2022 10:21 INDICATION: Abdominal pain and bloating. Weight loss. TECHNIQUE: The patient drank thick barium, gas-producing crystals, and thin barium. Fluoroscopy of th e esophagus, stomach, and small bowel was performed. Fluoroscopy exposure time was 0.6 minutes. Radio graphs of the abdomen were obtained. The total number of images was 282. COMPARISON: CT abdomen and pelvis 05/08/2022 FINDINGS: UPPER GASTROINTESTINAL SERIES: There is no mass or stricture of the esophagus. Esophageal motility is normal. There is no hiatal her pola. There was no gastroesophageal reflux with provocative maneuvers. The stomach shows a normal fold ing pattern. SMALL BOWEL SERIES: The small bowel shows a normal folding pattern. Specifically, the terminal ileum is normal. Transit t carlitos to the colon was 30 minutes. IMPRESSION: 1. Normal upper gastrointestinal series. 2. Normal small bowel series. Reviewed, dictated and finalized at location A.
== END 2022-12-02 08:35 | disposition home or self-care (01) ==
LOC: ANHIMG 08:37
PROVIDERS: PCP Family Medicine; Visit Provider Nurse Practitioner
DX: R14.0 Abdominal distension (gaseous) (principal)
CPT/HCPCS: 74246; 74248

== ENCOUNTER 2022-12-30 11:24 | Outpatient (CLI) | payer BC, SELFPAY | END 2022-12-30 11:25 | disposition home or self-care (01) | LOC: ANHLAB 11:25 | PROVIDERS: PCP Family Medicine; Visit Provider Internal Medicine Critical Care Medicine | DX: G25.81 Restless legs syndrome (principal) | CPT/HCPCS: 36415; 82728 ==

== ENCOUNTER 2023-01-07 08:30 | Outpatient (CLI) | payer BC, SELFPAY ==
--- NOTE | 2023-01-25 18:24 | WPDSLEEPSTUD ---
Sleep Study Date of Study: 01/07/23 Ordering Provider: Savannah Jamison MD Interpreting Physician: Savannah Jamison MD Sleep Study Type: Polysomnogram Height: 1.7 m Weight: 73.936 kg Body Mass Index: 25.5 Neck Circumference (inches): 15.75 [place]: 10 Reason for Sleep Study Poor quality sleep; difficulty getting to sleep and staying asleep Sleep History Ronald Lizama is a 37-year-old man with poor quality sleep. After getting out of the [employer], he noticed that he was sleeping less and waking up more during the night, was tired during the day and required naps. He he started having worse moods during the day. His memory deteriorated. He can only sleep 4 hours at night. He tried 3 different sleeping pills including Ambien 12.5 mg. He had adverse effects including driving while taking using Ambien. He attributes the rotating schedules during the to much of his problem, different sleep times and wake times. He has used 3 different medications to help get to sleep. He rarely awakens from sleep feeling short of breath. He occasionally wakes at night with heartburn, belching or coughing.??He constantly snores, and frequently snores loudly enough that others complain. He frequently has trouble sleeping when he has a cold. He rarely wakes up gasping for breath during the night. He occasionally has breathing problems at night. He rarely sweats excessively at night. He occasionally notices his heart pounding or beating irregularly during the night. He constantly falls asleep during the day. He occasionally falls asleep involuntarily, occasionally falls asleep while driving. He frequently experiences loss of muscle tone with strong emotion. He constantly has daytime difficulty at work due to excessive sleepiness. He rarely feels paralyzed on waking or falling asleep. He does not comment regarding whether or not he has vivid dreams upon waking or falling asleep. He occasionally feels afraid of going to sleep. He does not report having nightmares. He rarely recalls his dreams. He constantly has thoughts racing through his mind. He occasionally feels sad or depressed. He frequently feels anxiety. He frequently notices parts of his body jerk. He does not know if he kicks during the night. He occasionally feels crawling or aching feelings in his legs. He occasionally feels leg pain at night. He frequently has morning jaw pain, constantly grinds his teeth at night. He frequently feels bothered by pain during the day, occasionally is awakened by pain during the night. He constantly wakes up feeling stiff in the morning, and he constantly wakes feeling sore or achy. He constantly awakens with pain in his neck, spine, or joints. He reports insomnia, concentration difficulties, memory problems, sexual problems, fatigue, headaches and dizziness. Normal bedtime is 11:30 p.m., falling asleep within 30 minutes. He wakes between 2 and 4 times at night. During these awakenings, he may stay awake between 15 and 45 minutes. While awake, he checks the house, takes the dogs outside, sometimes simply stays in bed thinking. He typically gets approximately 4 hours of sleep per night. His wake up time is 6:00 a.m.. He takes no naps in the day, however sometimes feels refreshed after a short nap, suggesting that he is taking at least an occasional nap. He is usually drowsy for 2 hours after waking. He feels better in the evening compared to other times of day. Habits:??Tobacco: Never Caffeine: 1 soda per day. Alcohol: none Recreational substances: none PMFSH Past Medical History Medical History Adenomatous colon polyp Ankylosing spondylitis Anxiety and depression Constipation Degenerative joint disease Gastroparesis GERD (gastroesophageal reflux disease) Hx of adenomatous colonic polyps Irritable bowel syndrome with constipation Stool mucus Surgical History Surgical History (Reviewed
[2023-02-05 19:47] VITALS: BMI 25.5
== END 2023-01-08 07:35 | disposition home or self-care (01) ==
LOC: ANHCSM 08:30
PROVIDERS: PCP Family Medicine; Visit Provider Internal Medicine Critical Care Medicine
DX: G47.19 Other hypersomnia (principal); G47.00 Insomnia, unspecified; G25.81 Restless legs syndrome
CPT/HCPCS: 95810

== ENCOUNTER → 2023-04-14 09:03 | Outpatient (CLI) | payer BC, SELFPAY ==
--- NOTE | ~2023-04-14 | MR_ITS ---
EXAMINATION: MR brain/brain stem wo con DATE: 04/14/2023 09:40 INDICATION: Unspecified intracranial injury. Memory loss. Migraine headache. TECHNIQUE: Magnetic resonance imaging (MRI) of the brain and brainstem was performed without intraven ous contrast. COMPARISON: Head CT 09/23/2022 FINDINGS: There is no intracranial hemorrhage, acute infarction, or abnormal intracranial mass lesion . The ventricles are normal in size. The orbits are normal. There is mild mucosal thickening in left maxillary sinus. The mastoid air cells are normal. IMPRESSION: 1. Normal brain. Reviewed, dictated and finalized at location A. CLASSIFIER IMPRESSION: 1. Normal brain.
== END ==
PROVIDERS: PCP Family Medicine; Visit Provider Family Medicine
DX: S06.9XAA Unspecified intracranial injury with loss of consciousness status unknown, initial encounter (principal); X58.XXXA Exposure to other specified factors, initial encounter
CPT/HCPCS: 70551

== ENCOUNTER 2023-05-11 10:23 | Outpatient (CLI) | payer BC, SELFPAY ==
--- NOTE | 2023-05-27 19:15 | WPDSLEEPSTUD ---
Sleep Study Date of Study: 05/11/23 Ordering Provider: Savannah Jamison MD Interpreting Physician: Arti Mata, Sleep Study Type: Polysomnogram Height: 1.7 m Weight: 75.75 kg Body Mass Index: 26.2 Neck Circumference (inches): 14.5 [place]: 18 Reason for Sleep Study The patient had a PSG on 01/07/2023 that showed an overall AHI of 2.5 with desaturation down to 91%. There were concerns that this night of sleep was not risk control field representative of how he normally sleeps. Sleep History Ronald Lizama is a 38-year-old man with? poor quality sleep.? After getting out of the [employer], he noticed that he was sleeping less and waking up more during the night, was tired during the day and required naps.? He he started having worse moods during the day.? His memory deteriorated.? He can only sleep 4 hours at night.? He tried 3 different sleeping pills including Ambien 12.5 mg.? He had adverse effects including driving while taking using Ambien.? He attributes the rotating schedules during the to much of his problem, different sleep times and wake times.? He has used 3 different medications to help get to sleep.? He rarely awakens from sleep feeling short of breath. He occasionally wakes at night with heartburn, belching or coughing.??He constantly snores,? and frequently snores loudly enough that others complain. He frequently has trouble sleeping when he has a cold. He? rarely wakes up gasping for breath during the night. He? occasionally has breathing problems at night. He rarely sweats excessively at night. He? occasionally notices his heart pounding or beating irregularly during the night. He? constantly falls asleep during the day. He? occasionally falls asleep involuntarily,? occasionally falls asleep while driving. He frequently experiences loss of muscle tone with strong emotion. He? constantly has daytime difficulty at work due to excessive sleepiness.? He rarely feels paralyzed on waking or falling asleep. He does not comment regarding whether or not he has vivid dreams upon waking or falling asleep. He occasionally feels afraid of going to sleep. He does not report having nightmares. He rarely recalls his dreams. He constantly has thoughts racing through his mind. He occasionally feels sad or depressed. He frequently feels anxiety. He frequently notices parts of his body jerk. He?does not know if he kicks during the night. He?occasionally feels crawling or aching feelings in his legs. He?occasionally feels leg pain at night. He frequently has morning jaw pain, constantly grinds his teeth at night.? He frequently feels bothered by pain during the day, occasionally is awakened by pain during the night. He constantly wakes up feeling stiff in the morning, and he constantly wakes feeling sore or achy.? He constantly awakens with pain in his neck, spine, or joints.? He reports insomnia, concentration difficulties, memory problems, sexual problems, fatigue, headaches and dizziness. Normal bedtime is? 11:30 p.m., falling asleep? within 30 minutes. He wakes? between 2 and 4 times at night.? During these awakenings, he may stay awake between 15 and 45 minutes.? While awake, he checks the house, takes the dogs outside, sometimes simply stays in bed thinking. He typically gets approximately 4 hours of sleep per night. His wake up time is 6:00 a.m.. He takes no naps in the day,? however sometimes feels refreshed after a short nap, suggesting that he is taking at least an occasional nap. He is usually drowsy for 2 hours after waking.? He feels better in the evening compared to other times of day. Habits:??Tobacco:? Never? ? Caffeine: 1 soda per day. ? Alcohol: none ? ? Recreational substances: none [facility] Past Medical History Medical History Adenomatous colon polyp Ankylosing spondylitis Anxiety and depression Constipation Degenerative joint disease Gastroparesis GERD (gastroesophageal reflux disease) Hx of nubia
[2023-05-27 19:20] VITALS: BMI 26.2
== END 2023-05-12 06:57 | disposition home or self-care (01) ==
LOC: ANHCSM 10:23
PROVIDERS: PCP Family Medicine; Visit Provider Internal Medicine Critical Care Medicine
DX: G25.81 Restless legs syndrome (principal); G47.00 Insomnia, unspecified; R06.83 Snoring
CPT/HCPCS: 95810

== ENCOUNTER 2023-08-04 08:00 | Outpatient (CLI) | payer BC, SELFPAY ==
--- NOTE | ~2023-08-04 | NM_ITS ---
EXAMINATION: NM hepatobiliary wo pharm DATE: 08/04/2023 10:18 INDICATION: Abdominal distention. COMPARISON: CT abdomen and pelvis 05/08/2022 TECHNIQUE: 4.8 mCi Tc-99m mebrofenin (Choletec) was administered intravenously. Scintigraphic images of the abdomen were obtained for one hour. Then, the patient drank 8 oz Ensure, and imaging was cont inued for 60 minutes. FINDINGS: There is normal clearance of radiotracer from the blood pool. There is homogeneous tracer u ptake by the liver. Activity progresses to the bowel and gallbladder. Gallbladder ejection fraction (GBEF) was 51%. Note that with this technique, normal GBEF >= 33%. IMPRESSION: 1. Normal hepatobiliary scintigraphy. Reviewed, dictated and finalized at location A.
== END 2023-08-04 08:01 | disposition home or self-care (01) ==
PROVIDERS: PCP Family Medicine; Visit Provider Nurse Practitioner
DX: R14.0 Abdominal distension (gaseous) (principal)
CPT/HCPCS: 78226; A9537

== ENCOUNTER 2023-12-05 16:20 | Observation (INO) | payer BC, SELFPAY ==
--- NOTE | ~2023-12-05 | XR_ITS ---
EXAMINATION: XR retrograde pyelo w/stent RT DATE: 12/06/2023 09:49 INDICATION: Right internal ureteral stent placement TECHNIQUE: Fluoroscopic images from a right internal ureteral stent placement are submitted for nesiha lorenzo 9 seconds of fluoroscopy time. FINDINGS: There is a right double-J internal ureteral stent projecting in expected position, with proximal [place] loop at the level of the renal pelvis. The distal loop is not visualized. IMPRESSION: 1. Right internal ureteral stent placement. Please refer to real-time procedural findings for detmayda ls. Reviewed, dictated and finalized at location B. IMPRESSION: 1. Right internal ureteral stent placement. Please refer to real-time procedu ral findings for details.
--- NOTE | ~2023-12-05 | CT_ITS ---
CT abdomen pelvis wo con Ordering provider: Maury Tamez MD History: 38 years Male with . FLANK PAIN . Comparison: None. Technique: CT abdomen and pelvis without IV and without oral contrast. Automated exposure control and iterative reconstruction technique were employed. The dose-length product was 436.35 mGy-cm. Findings: VISUALIZED LOWER CHEST: Normal. UPPER ABDOMINAL ORGANS: Liver: Normal. Gallbladder: Normal. Spleen: Normal. Stomach/duodenum: Normal. Pancreas: Normal. Adrenals: Normal. Kidneys: Mild to moderate Right hydronephrotic changes with a stone in the right lower ureter measuri ng 4 mm. PELVIC ORGANS: The bladder is underfilled with slightly thickened wall. BOWEL AND MESENTERY: Colon: No evidence of diverticulitis.. No evidence of appendicitis. Small Bowel: Normal. No obstruction. Peritoneum/mesentery: No free air or free fluid. No mesenteric lymphadenopathy. RETROPERITONEUM: Normal aorta. No retroperitoneal lymphadenopathy. MUSCULOSKELETAL: Superficial soft tissues: The superficial soft tissues are normal. Bones: Normal spine. IMPRESSION: 1. Stone in the right lower ureter with right hydronephrotic changes. 2. No evidence of appendicitis, diverticulitis or intestinal obstruction. Reviewed, dictated and finalized at location A.
--- NOTE | ~2023-12-05 | XR_ITS ---
XR abdomen/kub 1V Ordering provider: Jj Howard MD History: . kidney stone . Comparison: September 12, 2021 FINDINGS: BOWEL: Nonobstructive bowel gas pattern. ORGANOMEGALY: None. SIGNIFICANT PATHOLOGIC CALCIFICATIONS: None. OTHER: No free air is seen under the diaphragm. IMPRESSION: NO ACUTE ABDOMINAL FINDINGS. Reviewed, dictated and finalized at location A.
--- NOTE | ~2023-12-05 | XR_ITS ---
XR chest 2V Ordering provider: Maury Tamez MD History: 38 years Male with . R SIDED CHEST PAIN . Comparison: November 15, 2021 FINDINGS: MEDIASTINUM: The cardiac silhouette is not enlarged. Prominent markings bilaterally in the lower lobe s area. LUNGS: No infiltrates, effusions or pneumothorax. OTHER: No free air under the diaphragm. IMPRESSION: Prominent markings in the lower lobes. Otherwise, No acute cardiopulmonary pathology. Reviewed, dictated and finalized at location A. IMPRESSION: Prominent markings in the lower lobes. Otherwise, No acute cardiopulmonary path ology.
--- NOTE | 2023-12-05 16:22 | ECG_ITS ---
Test Date: 2023-12-05 16:51:01 Measurements Intervals [place] Rate: 80 P: 44 MN: 164 QRS: 25 QRSD: 87 T: 41 QT: 320 QTc: 371 Interpretive Statements SINUS RHYTHM BASELINE ARTIFACT- III, V3-V4 NORMAL ECG No previous ECG available for comparison Electronically Signed On 12-05-2023 17:06:52 CDT by Darius Call D.O.
[2023-12-05 16:54] VITALS: BP 151/88; PULSE 85; RESP 18; TEMP 36.3; O2SAT 98
[2023-12-05 17:07] LABS: Basophils Percent Auto 0.5 % (0.2-1.2); Eosinophils Percent Auto 0.5 % (0-4.4); Hematocrit 52.5 % (42.0-52.0); Hemoglobin 17.2 g/dL (14.0-18.0); Immature Granulocyte Absolute 0.01 K/mm3 (0.00-0.031); Immature Granulocyte Percent A 0.1 % (0-0.5); Lymphocytes Absolute Auto 1.79 K/mm3 (0.9-3.2); Lymphocytes Percent Auto 23.6 % (18.3-44.2); Mean Corpuscular HGB Conc 32.8 g/dl (32-36); Mean Corpuscular Volume 88.4 fl (80-100); Mean Platelet Volume 9.2 fl (7.4-10.4); Monocytes Absolute Auto 0.6 K/mm3 (0.1-0.6); Monocytes Percent Auto 7.9 % (2.6-8.5); Neutrophils Absolute Auto 5.1 K/mm3 (1.3-6.7); Neutrophils Percent Auto 67.4 % (45.5-73.1); Platelet Count Result 314 k/mm3 (150-375); Red Blood Count 5.94 M/mm3 (4.6-6.20); Red Cell Distribution Width 14.9 % (11.5-14.5); White Blood Count 7.6 K/mm3 (4.5-10.0)
[2023-12-05 17:16] LABS: Alanine Aminotransferase 68 U/L (6-50); Albumin Level 4.4 g/dL (3.5-5.1); Alkaline Phosphatase 55 U/L (38-126); Anion Gap 7 mmol/L (4-12); Aspartate Amino Transferase 62 U/L (17-59); Bilirubin,Total 0.9 mg/dL (0.2-1.3); Blood Urea Nitrogen 11 mg/dL (9-20); Calcium 9.1 mg/dL (8.4-10.2); Carbon Dioxide 31 mmol/L (22-30); Chloride 98 mmol/L (98-107); Estimated CRCL calculation 42 ml/min; Estimated Glomerular Filt Rate 37; Glucose 102 mg/dL (65-110); Lipase 79 U/L (23-300); Sodium 136 mmol/L (137-145)
[2023-12-05 17:19] LABS: Partial Thromboplastin Time 28.6 Seconds (22.3-36.8); Prothrombin Time 13.4 Seconds (11.1-14.7)
[2023-12-05 17:28] LABS: Troponin I < 0.012 ng/mL (0.000-0.034)
[2023-12-05 17:40] VITALS: BP 148/78; PULSE 78; RESP 18; O2SAT 99
--- NOTE | 2023-12-05 17:40 | PC.NURSE ---
Pt to the intake desk and states the pain is now radiating down into his right testicle. Pt states the pain is stabbing.
--- NOTE | 2023-12-05 17:47 | ED.ABDPAIN ---
HPI - Abdominal Pain General Chief Complaint: Abdominal Pain Stated Complaint: R LATERAL CHEST PAIN S/P WRESTLING HX CARDIAC PROB Time Seen by Provider: 12/05/23 17:47 Source: patient and family Mode of arrival: ambulatory Limitations: no limitations History of Present Illness HPI narrative: 38 YEARS OLD WHITE MALE CAME TO THE EMERGENCY ROOM WITH SUDDEN ONSET OF PAIN AT THE RIGHT FLANK AREA RADIATING TO RIGHT TESTICLE ASSOCIATED WITH NAUSEA, VOMITING. PATIENT DENIES HISTORY OF KIDNEY STONE. HISTORY OF CONGESTIVE HEART FAILURE, DIAGNOSED 2 MONTHS AGO AT THE [place]. Related Data Home Medications Medication Instructions Recorded Confirmed finasteride 5 mg tablet 5 mg PO DAILY 12/27/21 08/26/23 zolpidem 10 mg tablet (Ambien) 10 mg PO QHS PRN 10/27/23 Allergies Allergy/AdvReac Type Severity Reaction Status Date / Time No Known Allergies Allergy Verified 10/27/23 07:30 Review of Systems Review of Systems: All systems reviewed & are unremarkable except as noted in HPI and below PMFSH Past Medical History Medical History Adenomatous colon polyp Ankylosing spondylitis Anxiety and depression Constipation Degenerative joint disease Gastroparesis GERD (gastroesophageal reflux disease) Hx of adenomatous colonic polyps Irritable bowel syndrome with constipation Stool mucus Surgical History Surgical History H/O excision of mass 08/09/20 excision of back cyst H/O umbilical hernia repair 1993 Family History Family History Mother Cerebrovascular accident COPD (chronic obstructive pulmonary disease) Other Diabetes mellitus Throat cancer Social History Social History Smoking status: Never smoker Second hand tobacco smoke exposure: Yes Alcohol intake: never Substance use: never Substance use type: does not use Do You Feel Safe in your Home?: Yes Lack of Transportation: No Lack of Food: Never True Current Housing: I Have Housing Concerned About Future Housing: No Difficulty Paying Gas/Electric Bills: No Difficulty Paying for Meds: No Currently Unemployed: No Education: Associate Degree Difficulty w/ Childcare or Family Care: No Living arrangements: with family Occupation/Education: occupation 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 MUSCULOSKELETAL: NORMAL RANGE OF MOTION, NONTENDER BACK NEUROLOGIC: ALERT AND ORIENTED ?3, ACCOUNT EXECUTIVE KEY ACCOUNTS IS NORMAL TESTED, NO GROSS MOTOR DEFICIT Course Consultations Consultation #1: PATIENT WAS SIGNED OUT TO DR. HENRY AT SHIFT CHANGE Date: 12/05/23 Time: 19:06 Vital Signs Vital signs: Vital Signs Temperature 36.3 C L 12/05/23 16:54 Pulse Rate 85 12/05/23 16:54 Respiratory Rate 18 12/05/23 16:54 Blood Pressure 151/88 H 12/05/23 16:54 Pulse Oximetry 98 12/05/23 16:54 Oxygen Delivery Room Air 12/05/23 16:54 Temperature 36.3 C L 12/05/23
[2023-12-05 18:02] LABS: Add Urine Microscopic? YES; Appearance Urine Clear (Clear); Bacteria Urine None Seen /hpf; Bilirubin Urine Negative (Negative); Blood Urine 2+ (Negative); Color Urine Yellow (Yellow); Glucose Urine UA Negative (Negative); Ketones Urine Trace mg/dL (Negative); Leukocyte Esterase Ur Trace LEU/UL (Negative); Nitrate Urine Negative (Negative); Non Pathogenic Casts 0-2; Protein Urine Trace mg/dL (Negative); Specific Grav Ur 1.019 (1.001-1.035); Squamous Epithelial Cell Urine None Seen /hpf (Few); Urobilinogen Urine 0.2 mg/dL (<2.0); WBC Urine 0-5 /hpf (0-3)
[2023-12-05] MEDS: HYDROmorphone HCL INJ (*CRX) 1 MG/ML SYR 0.5 MG IV PUSH ×2 (18:20→18:36)
[2023-12-05] MEDS: ONDANSETRON INJ 4 MG/2 ML VIAL IV PUSH (18:21)
[2023-12-05 18:23] VITALS: BP 138/84; PULSE 69; RESP 20; O2SAT 99
[2023-12-05] MEDS: LACTATED RINGERS 1,000 ML 999 ML IV CONT (20:10)
[2023-12-05] MEDS: HYDROmorphone HCL INJ (*CRX) 1 MG/ML SYR IV PUSH ×2 (20:24→23:20)
[2023-12-05 23:14] VITALS: BP 148/74; PULSE 74; RESP 16; TEMP 36.7; O2SAT 98; BMI 29.1
[2023-12-05] MEDS: SODIUM CHLORIDE 0.9% IV 1,000 ML 100 ML IV CONT (23:17)
--- NOTE | 2023-12-05 23:45 | ADMGEN ---
This patient, Ronald Lizama, was admitted to Medical Room 261-01. Patient/family oriented to hospital policies and general routines including ID bracelet, bed and alarms, visiting hours, pain management, procedures, bathroom and other care routines, personal items, smoking policy, room service/diet, and visiting hours. Information on how to activate the Rapid Response Team has been discussed. Patient/Family are encouraged to report perceived risks to care and to ask questions if they do not understand what they are told or what they should do.
[2023-12-06] VITALS (10 sets, daily range): BP systolic 118–133; BP diastolic 57–80; PULSE 74–91; RESP 10–19; TEMP 36.4–36.8; O2SAT 94–100
[2023-12-06] MEDS: ONDANSETRON INJ 4 MG/2 ML VIAL IV PUSH (00:33)
[2023-12-06] MEDS: HYDROmorphone HCL INJ (*CRX) 1 MG/ML SYR IV PUSH ×4 (03:25→17:43)
[2023-12-06 06:50] LABS: Alanine Aminotransferase 56 U/L (6-50); Albumin Level 3.9 g/dL (3.5-5.1); Alkaline Phosphatase 45 U/L (38-126); Anion Gap 6 mmol/L (4-12); Aspartate Amino Transferase 51 U/L (17-59); Bilirubin,Total 1.2 mg/dL (0.2-1.3); Blood Urea Nitrogen 14 mg/dL (9-20); Calcium 8.4 mg/dL (8.4-10.2); Carbon Dioxide 31 mmol/L (22-30); Chloride 98 mmol/L (98-107); Estimated CRCL calculation 52 ml/min; Estimated Glomerular Filt Rate 48; Glucose 89 mg/dL (65-110); Sodium 135 mmol/L (137-145)
--- NOTE | 2023-12-06 08:13 | PM.IMHP ---
H&P: HPI History of Present Illness Date/Time: 12/06/23 08:13 Chief Complaint: abd pain Narrative: 38 y.o with PMH/o colon polyps, JEREMI, IBS with constipation, CHF (recent diagnois), GERD/gastroporeisis (following with GI), MASLD, BPH (following with urology), memory change(following with neurology), RLS/AYSHA (following with pulm/sleep med), migraine, insomnia admitted from ED for sudden onset of abd/flank pain radiating to Rt testicle- associated with nausea and vomiting. NO h/o kidney stones. Of note- pt was diagnosed with CHF 2 months ago- had EF at [facility]-EF was 44% and started on jardiance and metoprolol. He also has a f/u mary with cards here already set up for january. Also recent MRI due to memory lost and following with neurology for that. In ed: Abdomen/Pelvis CT 12/05/23 18:45 IMPRESSION: 1. Stone in the right lower ureter with right hydronephrotic changes. 2. No evidence of appendicitis, diverticulitis or intestinal obstruction. 12/05 to or for Cystoscopy, right retrograde, right ureteroscopy with stone extraction, right ureteral stent placement 4.8 Yoruba contour Review of Systems Review of Systems: pt is alert, pleasant. Reports some blood Constitutional: Constitutional: Denies chills Cardiovascular: Cardiovascular: Denies chest pain Respiratory: Respiratory: Denies chest congestion and Denies cough Genitourinary: Genitourinary: Reports hematuria Musculoskeletal: Musculoskeletal: Reports back pain Psychiatric: Psychiatric: Denies anxiety PMFSH Past Medical History Medical History Adenomatous colon polyp Ankylosing spondylitis Anxiety and depression Constipation Degenerative joint disease Gastroparesis GERD (gastroesophageal reflux disease) Hx of adenomatous colonic polyps Irritable bowel syndrome with constipation Stool mucus Surgical History Surgical History H/O excision of mass 08/09/20 excision of back cyst H/O umbilical hernia repair 1993 Family History Family History Mother Cerebrovascular accident COPD (chronic obstructive pulmonary disease) Other Diabetes mellitus Throat cancer Social History Social History Smoking status: Never smoker Second hand tobacco smoke exposure: Yes Alcohol intake: former Substance use: never Substance use type: does not use Do You Feel Safe in your Home?: Yes Lack of Transportation: No Lack of Food: Never True Current Housing: I Have Housing Concerned About Future Housing: No Difficulty Paying Gas/Electric Bills: No Difficulty Paying for Meds: No Currently Unemployed: No Education: High School Diploma/GED Difficulty w/ Childcare or Family Care: No Living arrangements: with family Occupation/Education: occupation 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 Gender identity (if verbalized by the patient): Male Spiritual care concerns: No Meds Home Medications and Allergies Home Medications Medication Instructions Recorded Confirmed Type finasteride 5 mg tablet 5 mg PO DAILY 12/27/21 12/06/23 History sumatriptan succinate 100 mg 100 mg PO ONCE PRN migraine 04/09/23 12/06/23 Rx tablet (Imitrex) headache #10 tabs amitriptyline 75 mg tablet 75 mg PO QHS #90 tabs 08/26/23 12/06/23 Rx pantoprazole 40 mg tablet,delayed 40 mg PO QAM #90 tabs 08/26/23 12/06/23 Rx release zolpidem 12.5 mg tablet,extended 12.5 mg PO QHS PRN insomnia #30 11/04/23 12/06/23 Rx release,multiphase tabs Allergies Allergy/AdvReac Type Severity Reaction Status Date / Time No Known Allergies Allergy Verified 10/27/23 07:30 Vital Signs Vital Signs - 24 hr 12/05/23 16:54 12/05/23 17:40 12/05/23 18:23 Temperature 97.4 F L Pulse Rate 85 78 69 Respiratory Rate 18 18
--- NOTE | 2023-12-06 09:04 | PC.NURSE ---
pt taken down to surgery, report given to Carol DICKERSON in pre-op
--- NOTE | 2023-12-06 09:12 | WPDURCON ---
Assessment and Plan Assessment and plan (1) Right ureteral calculus: Code(s): N20.1 - Calculus of ureter Status: Acute Assessment and Plan: proceed with cystoscopy, right retrograde, right ureteroscopy with stone extraction, possible laser, stent. Urology Consult Note HPI Date Seen: 12/06/23 Time Seen: 09:12 Requesting Physician: Yolanad Anne DO Primary Care Provider: Nico Castillo MD Consult Narrative Reason for consult: 4 mm right ureteral calculus Narrative: Ronald Lizama is a 38 year old male with right flank pain found to have a 4mm calculus with hydro. Review of Systems Review of Systems: All systems reviewed & are unremarkable except as noted in HPI and below PMFSH Past Medical History Medical History Adenomatous colon polyp Ankylosing spondylitis Anxiety and depression Constipation Degenerative joint disease Gastroparesis GERD (gastroesophageal reflux disease) Hx of adenomatous colonic polyps Irritable bowel syndrome with constipation Stool mucus Surgical History Surgical History H/O excision of mass 08/09/20 excision of back cyst H/O umbilical hernia repair 1993 Family History Family History Mother Cerebrovascular accident COPD (chronic obstructive pulmonary disease) Other Diabetes mellitus Throat cancer Social History Social History Smoking status: Never smoker Second hand tobacco smoke exposure: Yes Alcohol intake: former Substance use: never Substance use type: does not use Do You Feel Safe in your Home?: Yes Lack of Transportation: No Lack of Food: Never True Current Housing: I Have Housing Concerned About Future Housing: No Difficulty Paying Gas/Electric Bills: No Difficulty Paying for Meds: No Currently Unemployed: No Education: High School Diploma/GED Difficulty w/ Childcare or Family Care: No Living arrangements: with family Occupation/Education: occupation 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 Gender identity (if verbalized by the patient): Male Spiritual care concerns: No Meds Home Medications and Allergies Home Medications Medication Instructions Recorded Confirmed Type finasteride 5 mg tablet 5 mg PO DAILY 12/27/21 12/06/23 History sumatriptan succinate 100 mg 100 mg PO ONCE PRN migraine 04/09/23 12/06/23 Rx tablet (Imitrex) headache #10 tabs amitriptyline 75 mg tablet 75 mg PO QHS #90 tabs 08/26/23 12/06/23 Rx pantoprazole 40 mg tablet,delayed 40 mg PO QAM #90 tabs 08/26/23 12/06/23 Rx release zolpidem 12.5 mg tablet,extended 12.5 mg PO QHS PRN insomnia #30 11/04/23 12/06/23 Rx release,multiphase tabs Allergies Allergy/AdvReac Type Severity Reaction Status Date / Time No Known Allergies Allergy Verified 10/27/23 07:30 Vital Signs Vital Signs - 24 hr 12/05/23 16:54 12/05/23 17:40 12/05/23 18:23 Temperature 36.3 C L Pulse Rate 85 78 69 Respiratory Rate 18 18 20 Blood Pressure 151/88 H 148/78 H 138/84 Pulse Oximetry 98 99 99 Oxygen Delivery Room Air 12/05/23 23:14 12/06/23 06:00 Temperature 36.7 C 36.6 C Pulse Rate 74 87 Respiratory Rate 16 16 Blood Pressure 148/74 H 131/57 L Pulse Oximetry 98 96 Oxygen Delivery Exam Const: General: cooperative Resp: Effort & Inspection: normal respiratory effort Cardio: Rate: regular rate Rhythm: regular rhythm Results Labs 12/05/23 17:00 12/06/23 05:51 Labs: Short CBC 12/05/23 Range/Units 17:00 WBC 7.6 (4.5-10.0) K/mm3 Hgb 17.2 (14.0-18.0) g/dL Hct 52.5 H (42.0-52.0) % Plt Count 314 (150-375) k/mm3 BMP 12/05/23 12/06/23 17:00 05:51 Sodium 136 L 135 L Potassium 5.0 4.0 Chloride 9
--- NOTE | 2023-12-06 09:15 | WPDHPUPDATE1 ---
History and Physical Update Update Date/Time: 12/06/23 09:15 History and Physical has been reviewed, including an updated exam of the patient. There are NO changes in the patient's condition. Risks, benefits, and alternatives have been discussed and questions answered. Patient agrees to proceed with procedure.
--- NOTE | 2023-12-06 09:22 | WPDANESEPPF ---
Anes - Initial Pre Proc Eval Procedure: Operation Date: 12/06/23 09:30 Proposed Procedures p Cysto, RPG, Stone Ext, Stent Placement(Right) - Aleks Jenkins MD Date/Time: 12/06/23 09:22 Surgeon: Yolanda Anne DO Pre Op Diagnosis: Kidney stone Patient Data Age: 38 Gender: M Height: 1.7 m Weight: 84.5 kg Last Vital Signs Temp 36.6 C 12/06/23 06:00 Pulse 87 12/06/23 06:00 Resp 16 12/06/23 06:00 BP 131/57 L 12/06/23 06:00 Pulse Ox 96 12/06/23 06:00 O2 Del Method Room Air 12/05/23 16:54 Allergies Allergy/AdvReac Type Severity Reaction Status Date / Time No Known Allergies Allergy Verified 10/27/23 07:30 Home Medications Medication Instructions Recorded Confirmed Type finasteride 5 mg tablet 5 mg PO DAILY 12/27/21 12/06/23 History sumatriptan succinate 100 mg 100 mg PO ONCE PRN migraine 04/09/23 12/06/23 Rx tablet (Imitrex) headache #10 tabs amitriptyline 75 mg tablet 75 mg PO QHS #90 tabs 08/26/23 12/06/23 Rx pantoprazole 40 mg tablet,delayed 40 mg PO QAM #90 tabs 08/26/23 12/06/23 Rx release zolpidem 12.5 mg tablet,extended 12.5 mg PO QHS PRN insomnia #30 11/04/23 12/06/23 Rx release,multiphase tabs Laboratory Tests 12/05/23 12/05/23 12/06/23 17:00 17:50 05:51 WBC 7.6 K/mm3 (4.5-10.0) RBC 5.94 M/mm3 (4.6-6.20) Hgb 17.2 g/dL (14.0-18.0) Hct 52.5 H % (42.0-52.0) MCV 88.4 fl (80-100) MCH 29.0 pg (26-34) MCHC 32.8 g/dl (32-36) RDW 14.9 H % (11.5-14.5) Plt Count 314 k/mm3 (150-375) MPV 9.2 fl (7.4-10.4) Immature Gran % (Auto) 0.1 % (0-0.5) Neut % (Auto) 67.4 % (45.5-73.1) Lymph % (Auto) 23.6 % (18.3-44.2) [place] % (Auto) 7.9 % (2.6-8.5) Eos % (Auto) 0.5 % (0-4.4) Baso % (Auto) 0.5 % (0.2-1.2) Lymph # (Auto) 1.79 K/mm3 (0.9-3.2) [place] # (Auto) 0.6 K/mm3 (0.1-0.6) Eos # (Auto) 0.0 K/mm3 (0-0.3) Baso # (Auto) 0.0 K/mm3 (0.0-0.1) Abs Immat Gran (auto) 0.01 K/mm3 (0.00-0.031) Absolute Neuts (auto) 5.1 K/mm3 (1.3-6.7) Absolute Nucleated RBC 0.000 K/mm3 (0.0-0.012) Nucleated RBC % 0.0 % (0.0-0.2) PT 13.4 Seconds (11.1-14.7) INR 1.0 APTT 28.6 Seconds (22.3-36.8) Sodium 136 L mmol/L 135 L mmol/L (137-145) (137-145) Potassium 5.0 mmol/L 4.0 mmol/L (3.4-5.0) (3.4-5.0) Chloride 98 mmol/L 98 mmol/L (98-107) (98-107) Carbon Dioxide 31 H mmol/L 31 H mmol/L (22-30) (22-30) Anion Gap 7 mmol/L 6 mmol/L (4-12) (4-12) BUN 11 mg/dL 14 mg/dL (9-20) (9-20) Creatinine 2.00 H mg/dL 1.60 H mg/dL (0.7-1.3) (0.7-1.3) Estim Creat Clear Calc 42 ml/min 52 ml/min Estimated GFR 37 L 48 L (59 - ) (59 - ) Glucose 102 mg/dL 89 mg/dL (65-110) (65-110) Calcium 9.1 mg/dL 8.4 mg/dL (8.4-10.2) (8.4-10.2) Total Bilirubin 0.9 mg/dL 1.2 mg/dL (0.2-1.3) (0.2-1.3) AST 62 H U/L 51 U/L (17-59) (17-59) ALT 68 H U/L 56 H U/L (6-50) (6-50) Alkaline Phosphatase 55 U/L 45 U/L (38-126) (38-126) Troponin I < 0.012 ng/mL (0.000-0.034) Total Protein 8.0 g/dL 7.0 g/dL (6.3-8.2) (6.3-8.2) Albumin 4.4 g/dL 3.9 g/dL (3.5-5.1) (3.5-5.1) Lipase 79 U/L (23-300) Urine Color Yellow (Yellow) Urine Appearance Clear (Clear) Urine pH 5.0 (5.0-9.0) Ur Specific [place] 1.019 (1.001-1.035) Urine Protein Trace mg/dL (Negative) Urine Glucose (UA) Negative mg/dL (Negative) Urine Ketones Trace H mg/dL (Negative) Ur Blood (Man) 2+ H (Negative) Urine Nitrate Negative (Negative) Urine Bilir
[2023-12-06] MEDS: ceFAZolin 2 GM/D5W 50 ML 2 GM/50 ML BAG IVPB (09:30)
[2023-12-06] MEDS: LIDOCAINE HCL 2% GEL UROJET 10 ML PKG MUCOUS MEM (09:45)
--- NOTE | 2023-12-06 09:46 | W.PM.PROC2 ---
Procedure Note - Detailed Date of Procedure 12/06/23 Pre-op Diagnosis Right ureteral calculus 4 mm Post-op Diagnosis Same Procedure Performed Cystoscopy, right retrograde, right ureteroscopy with stone extraction, right ureteral stent placement 4.8 Ecuadorean contour Surgeon Aleks Jenkins MD Anesthesia General Description of Procedure Patient was taken to the operative suite correctly identified. Once anesthesia was obtained was placed in dorsal lithotomy position and prepped and draped usual sterile fashion. Twenty-two Ecuadorean scope was inserted the bladder. His prostate does not appear overly obstructive. He does have slightly elevated median bar. The bladder itself shows no evidence of tumors. The right ureteral orifice was cannulated with a guidewire. 8/10 dilator was used to dilate the orifice. Rigid ureteral scope was inserted. The stone was visualized. Using escape basket was retrieved in its entirety. Pyelogram was then performed to confirm placement the stent. 4.8 Ecuadorean contour stent was placed with proximal end coiled in the renal pelvis and the distal in the bladder. 2% viscous lidocaine was inserted urethra patient is taken recovery stable condition. He is tolerating things later in be discharged home with follow-up in a week for stent removal. This completes dictation. Please send a copy of op note the office. Estimated Blood Loss 0 Urine Output 120 Drains Yes Packing No Pathology Yes Complications No immediate complications Condition Stable Disposition PACU
[2023-12-06] MEDS: LACTATED RINGERS 1,000 ML 30 ML IV CONT (09:53)
--- NOTE | 2023-12-06 11:30 | PC.NURSE ---
pt returned to room from surgery
[2023-12-06] MEDS: SODIUM CHLORIDE 0.9% IV 1,000 ML 100 ML IV CONT (12:05)
[2023-12-06] MEDS: oxyBUTYnin CHLORIDE 5 MG TABLET PO (17:43)
--- NOTE | 2023-12-07 07:16 | PM.DS ---
DS: Admitting Diagnosis Discharge Date 12/06/23 Admitting Diagnosis flank pain DS: Discharge Diagnosis Discharge Diagnosis (1) Heart failure: Code(s): I50.9 - Heart failure, unspecified Status: Acute Assessment and Plan: - recent diagnoses - Eco done at [facility]- reported EF 44% - started on jardiance and metoprolol - unsure where echo was done- no records available (2) Kidney stone: Code(s): N20.0 - Calculus of kidney Status: Acute Assessment and Plan: - Abdomen/Pelvis CT 12/05/23 18:45 IMPRESSION: 1. Stone in the right lower ureter with right hydronephrotic changes. 2. No evidence of appendicitis, diverticulitis or intestinal obstruction. - IV fluids - pain mngmnt - urology consulted in ED -12/05- Cystoscopy, right retrograde, right ureteroscopy with stone extraction, right ureteral stent placement 4.8 British contour (3) RODGER (acute kidney injury): Code(s): N17.9 - Acute kidney failure, unspecified Status: Acute Assessment and Plan: - likely to kidney stone - monitor I/O, labs, urology consulted Plan Dvt prophylaxis- SCD DS: Summary Hospital Course Hospital Course: admitted with flank pain. Urology was consulted- he had proceed with cystoscopy, right retrograde, right ureteroscopy with stone extraction. he tolerated procedure well and was discharged with a close f/u Status at Discharge Functional status at discharge: independent ambulation Overall status at discharge: patient is back to baseline Time Spent with Patient Time attestation: Total time spent providing and/or coordinating discharge services: Time spent: Greater than 30 minutes Exam Const: General: comfortable; No no acute distress Resp: Effort & Inspection: normal respiratory effort Auscultation: clear to auscultation bilaterally Cardio: Rate: regular rate Rhythm: regular rhythm Skin: General skin exam: normal color Neuro: Speech: normal speech Motor exam (neuro): 5/5 motor strength present throughout Extrem: General: normal to inspection Psych: Mental Status: mental status grossly normal DS: Data Data Completed and Pending Completed studies during hospitalization: abd pelvis CT, xray, retrograde pyelogram Pending studies at discharge: Pending at discharge 12/06/23 09:46 Surgical [PTH] Routine Discharge Plan Discharge Attending physician on discharge: Praveen Estes Consulting providers: Aleks Jenkinsarging Clinician: Praveen Estes Patient Disposition: Home, Self-Care Activity: as tolerated Diet: regular Discharge Instructions: Patient creatinine has been improving but still not in baseline. Need to follow up with PCP for labs follow up. Advised to seek ER if hematuria persist or pain or other signs of renal injury like swelling or no urine output. Need to f/u with urology for stent removal Patient Instructions: Antibiotic Form, Heart Failure (GEN) Stand Alone Forms: General Discharge Information Follow-up/Referrals: Nico Castillo MD [Primary Care Provider] - 1 Week (Patient needs CBC and CMP in a week) Aleks Jenkins MD [Physician] - Call for Appointment (for stent removal) Discharge Medications: New sulfamethoxazole-trimethoprim [Bactrim] 400-80 mg tablet 1 tablet PO HS Qty: 3 0RF tramadol 50 mg tablet 50 mg PO Q6H PRN (Reason: pain) Qty: 10 0RF oxybutynin chloride 5 mg tablet 5 mg PO Q12H PRN (Reason: bladder spasms) Qty: 10 0RF Continued sumatriptan succinate [Imitrex] 100 mg tablet 100 mg PO ONCE PRN (Reason: migraine headache) Qty: 10 2RF Rx Instructions: take at onset of migraine amitriptyline 75 mg tablet 75 mg PO QHS Qty: 90 3RF pantoprazole 40 mg tablet,delayed release (DR/EC) 40 mg PO QAM Qty: 90 3RF finasteride 5 mg tablet 5 mg PO DAILY Jardiance 12.5 mg PO DAILY metoprolol succinate 25 mg PO DAILY zolpidem 1
== END 2023-12-06 19:25 | disposition home or self-care (01) ==
LOC: ANHED 19:05 → ANH2MED 12-06 06:10
PROVIDERS: Emergency Medicine; Urology; Admitting Provider Internal Medicine; Emergency Provider Student in an Organized Health Care Education/Training Program; PCP Family Medicine; Visit Provider General Practice
PROC: (CPT 52352; principal; 2023-12-06 09:30)
DX: N13.2 Hydronephrosis with renal and ureteral calculous obstruction (principal); N17.9 Acute kidney failure, unspecified; I50.9 Heart failure, unspecified; F41.1 Generalized anxiety disorder; K58.1 Irritable bowel syndrome with constipation; K21.9 Gastro-esophageal reflux disease without esophagitis; K31.84 Gastroparesis; N40.0 Benign prostatic hyperplasia without lower urinary tract symptoms; G25.81 Restless legs syndrome; G47.33 Obstructive sleep apnea (adult) (pediatric); K76.0 Fatty (change of) liver, not elsewhere classified; G47.00 Insomnia, unspecified; R41.3 Other amnesia; Z79.84 Long term (current) use of oral hypoglycemic drugs
CPT/HCPCS: 52332; 52352; 36415; 71046; 74018; 74176; 74420; 80053; 81001; 82365; 83690; 84484; 85025; 85610; 85730; 88300; 93005; 96374; 96375; 96376; 99285; A9270; C1769; C2617; G0378; J0690; J1100; J1170; J2250; J2405; J2704; J3010; J7030; J7120; Q9966

== ENCOUNTER 2024-05-05 08:22 | Outpatient (CLI) | payer BC, SELFPAY ==
[2024-05-05 08:39] LABS: Basophils Percent Auto 0.2 % (0.2-1.2); Hematocrit 53.8 % (42.0-52.0); Immature Granulocyte Absolute 0.04 K/mm3 (0.00-0.031); Immature Granulocyte Percent A 0.4 % (0-0.5); Lymphocytes Absolute Auto 1.58 K/mm3 (0.9-3.2); Mean Corpuscular HGB Conc 33.5 g/dl (32-36); Mean Corpuscular Hemoglobin 30.1 pg (26-34); Mean Platelet Volume 9.7 fl (7.4-10.4); Monocytes Absolute Auto 0.9 K/mm3 (0.1-0.6); Neutrophils Absolute Auto 8.8 K/mm3 (1.3-6.7); Neutrophils Percent Auto 77.4 % (45.5-73.1); Platelet Count Result 277 k/mm3 (150-375); Red Blood Count 5.98 M/mm3 (4.6-6.20); Red Cell Distribution Width 13.9 % (11.5-14.5); White Blood Count 11.3 K/mm3 (4.5-10.0)
[2024-05-05 08:53] LABS: Albumin Level 4.5 g/dL (3.5-5.1)
[2024-05-05 08:58] LABS: Alanine Aminotransferase 29 U/L (6-50); Alkaline Phosphatase 67 U/L (38-126); Anion Gap 12 mmol/L (4-12); Aspartate Amino Transferase 24 U/L (17-59); Bilirubin,Total 1.2 mg/dL (0.2-1.3); Blood Urea Nitrogen 17 mg/dL (9-20); Calcium 9.4 mg/dL (8.4-10.2); Carbon Dioxide 27 mmol/L (22-30); Chloride 101 mmol/L (98-107); Estimated Glomerular Filt Rate > 60; Glucose 88 mg/dL (65-110); Potassium 3.9 mmol/L (3.4-5.0); Sodium 140 mmol/L (137-145)
== END 2024-05-05 08:23 | disposition home or self-care (01) ==
PROVIDERS: PCP Family Medicine; Referring Provider Internal Medicine Cardiovascular Disease; Visit Provider Family Medicine
DX: G47.00 Insomnia, unspecified (principal); K31.84 Gastroparesis; R53.83 Other fatigue; I50.9 Heart failure, unspecified; R51.9 Headache, unspecified; G89.29 Other chronic pain; K58.1 Irritable bowel syndrome with constipation
CPT/HCPCS: 36415; 80053; 85025

== ENCOUNTER 2024-06-30 03:03 | Day surgery (SDC) | payer BC, SELFPAY ==
[2024-06-27 13:00] VITALS: BMI 28.2
--- NOTE | 2024-06-29 10:08 | SUR.PREOP ---
Spoke with Dr. House's office in regards to cardiac clearance for patients EGD that is scheduled for tomorrow. Original fax was sent late on thursday and Doctor is only in office on mondays. Nurse was going to check on the fax and see if she could get clearance signed off on but she couldn't promise anything. Brought this to machining technician in GI lab and had anesthesiologist review the last office visit note with Dr. House that I was able to pull from patient's chart and per Dr. Murphy, anesthesiologist, patient can proceed with the procedure.
--- OUTSIDE RECORDS SUMMARY | 2024-06-30 03:06 | XMS_ITS | Encounter Summary ---
Author Organization [facility] Healthcare Address [address] [place] [address] Care Team Providers Care Setter Out Name Role Phone Miryam Willis MD Unavailable [phone] Nico Castillo MD Primary Care Provider [phone] Encounter Details Date Type Department Care Team (Late st Contact Info) Description 06/28/2024 Telephone [facility] Cardiology [address] [place] [address] Reinaldo House MD [address] [place] [id number] Social History Tobacco Use Types Packs/Day Years Used Date Smoking Tobacco: Never Smokeless Tobacco: Never Alcohol Use Standard Drinks/Week Comments No 0 (1 standard drink = 0.6 oz pur e alcohol) AUDIT-C Answer Date Recorded Q1: How often do you have a drink containing alcohol? Never 02/23/2024 Q2: How many drinks containi ng alcohol do you have on a typical day when you are drinking? Patient does not drink Q3: How often do you have si x or more drinks on one occasion? Never 02/23/2024 PHQ-2 Answer Date Recorded PHQ-2 Total Score (If total score is 3 or more points, staff should administer the PHQ-9) 0 09/07/2019 Personal Safety Answer Date Recorded Have you ever been in or are you currently in a harmful physical or emotional relationship or is someone making you feel afraid or unsafe? 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 * Telephone Encounter - Martine Leigh - 06/28/2024 12:47 PM CDT Pt requesting a call back to discuss if he is clear to take a peptide. Please advise pt is at the dr office now to get it and would like an answer murtaza I told him I would greg it urgent but I still can't guarantee when they will call. Thank you Contact: documented in this encounter Plan of Treatment Not on file documented as of this encounter Visit Diagnoses Not on filedocumented in this encounter Care Teams Setter Out Relationship Specialty Start Date End Date Nico Castillo MD PCP - General Family Practice 01/25/24 Miryam Willis MD Consulting Physician Gastroenterology 09/08/19 documented as of this encounter
--- OUTSIDE RECORDS SUMMARY | 2024-06-30 03:06 | XMS_ITS | Encounter Summary ---
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 Can't guarantee pt will get cleared before end of day butI will send a message to JF and see if he is ok with pt having EGD tomorrow at . Requested more than a days notice for clearances in the future. JF-please advise with risk stratification if approved. Thank you! * Telephone Encounter - Martine Leigh - 06/29/2024 9:04 AM CDT Amanda w/ Endoscopy called requesting a status update on the cardiac clearance she sent on 06/27. The pt is having a procedure done tomorrow at 1 pm he is scheduled to arrive at 11:30 am. I reviewed the chart and didn't see any clearance or notes regarding a clearance. Amanda would like a call back with an update on if we never received it or if it is just waiting on the doctor. Please advise Thank you Contact: documented in this encounter Plan of Treatment Not on file documented as of this encounter Visit Diagnoses Not on filedocumented in this encounter Care Teams Elementary Supervisor Relationship Specialty Start Date End Date Nico Castillo MD PCP - General Family Practice 01/25/24 Miryam Willis MD Consulting Physician Gastroenterology 09/08/19 documented as of this encounter
--- OUTSIDE RECORDS SUMMARY | 2024-06-30 03:06 | XMS_ITS | Referral Summary ---
Author Organization [facility] Address [address] [place] [address] Care Team Providers Care Project Admin Name Role Phone Miryam Willis MD Unavailable [phone] Nico Castillo MD Primary Care Provider [phone] Encounters Date Type Department Care Team Description 06/29/2024 Telephone [facility] Medical [facility] Cardiology [address] [place] [address] [address] [place] [phone] Reinaldo House MD 06/28/2024 Telephone [facility] Cardiology [address] [place] [address] [address] [place] [phone] Reinaldo House MD 05/09/2024 8:00 AM RUBY ON RAILS SOFTWARE DEVELOPER Office Visit [facility] Cardiology [address] [place] [phone] Reinaldo House MD Cardiomyopathy, idiopathic (HCC) (Primary Dx); Low left ventricular ejection fraction; FLOWER (dyspnea on exertion) 04/11/2024 11:15 AM RUBY ON RAILS SOFTWARE DEVELOPER Office Visit [facility] Cardiology [address] [place] [address] [address] [place] [phone] Reinaldo House MD Cardiomyopathy, idiopathic (HCC) (Primary Dx); Low left ventricular ejection fraction; FLOWER (dyspnea on exertion); Lipid screening from Last 3 Months Allergies No known active allergies Medications adalimumab (HUMIRA SYRINGE) 20 mg/0.2 mL syringe kit Inject 0.2 mL (20 mg total) under the skin every 14 (fourteen) days Active nortriptyline (PAMELOR) 10 mg capsule TAKE 1 CAPSULE(10 MG) BY MOUTH EVERY NIGHT 30 capsule 2 0 Active finasteride (PROSCAR) 5 mg tablet Take 1 tablet (5 mg total) by mouth daily 2 Active zolpidem CR (AMBIEN CR) 12.5 mg CR tablet Take 1 tablet (12.5 mg total) by mouth nightly at bedtime. 2 Active ipratropium (ATROVENT) 42 mcg (0.06 %) nasal spray Administer 2 sprays into each nostril 3 (three) times a day 15 mL 6 2 Active Additional Information Patient not taking.Reported on 05/09/2024 methylPREDNISolo ne (MEDROL DOSEPACK) 4 mg Dosepack Take as directed on package 1 packet 2 Active Additional Information Patient not taking.Reported on 05/09/[address] (PROTONIX) 40 mg EC tablet Take 1 tablet (40 mg total) by mouth 2 (two) times a day 60 tablet 3 2 Active venlafaxine XR (EFFEXOR-XR) 37.5 mg 24 hr capsule TAKE 1 CAPSULE BY MOUTH ONCE DAILY FOR 1 WEEK, THEN INCREASE TO 2 CAPSULES DAILY 3 Active empagliflozin (JARDIANCE) 25 mg tablet 0.5 tablets (12.5 mg total) daily Active amitriptyline (ELAVIL) 75 mg tablet Take 1 tablet (75 mg total) by mouth nightly at bedtime. 4 Active metoprolol XL (TOPROL-XL) 50 mg extended release tablet Take 1 tablet (50 mg total) by mouth daily 0.5 tablet Active erenumab-aooe (AIMOVIG) 70 mg/mL auto-injector subcutaneous injection Inject 1 mL (70 mg total) under the skin every 30 (thirty) days Active famotidine (PEPCID) 20 mg tablet Take 1 tablet (20 mg total) by mouth 2 (two) times a day Active lidocaine (LIDODERM) 5 % Place 1 patch on the skin daily as needed for pain Remove & discard patch within 12 hours or as directed by MD. Active mupirocin (BACTROBAN) 2 % ointment Apply topically 3 (three) times a day as needed Active benzoyl peroxide (BREVOXYL) 4 % external liquid Apply topically 2 (two) times a day Active diclofenac sodium (VOLTAREN) 1 % gel Apply topically 4 (four) times a day Active sildenafiL (VIAGRA) 100 mg tablet Take 1 tablet (100 mg total) by mouth daily as needed for erectile dysfunction Active hydrALAZINE (APRESOLINE) 10 mg tabletIndication s:hypertension Take 1 tablet (10 mg total) by mouth 3 (three) times a day 90 tablet 11 4 02/23/20 25 Active vericiguat (Verquvo) 2.5 mg tablet Take one tab daily for two weeks then after that take 2 pills daily 60 tablet 6 5 Active Active Problems Problem Noted Date Diagnosed Date Cardiomyopathy, idiopathic 02/22/2024 Ejection fraction < 50% 02/08/2024 Low left ventricular ejection fraction 4 FLOWER (dyspnea on exertion) 01/25/2024 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 He would like to give it a try. It will be prescribed. Globus sensation 01/08/2022 Assessment & Plan (01/08/2022 1:03 PM CDT): I reassured that her thing generally looks okay. He does have very generous lingual tonsils which appears symmetric. I did recommend getting a CT scan to further evaluate however. He would like to pursue that. Laryngopharyngeal reflux 01/08/2022 Assessment & Plan (01/08/2022 1:03 PM CDT): I think this is causing most of his throat symptoms. I talked with him about increasing his PPIs for a while. I told him that it would give some relief it would probably not clear things entirely. He understands that. He would like to go ahead and do that. I am also prescribing a steroid pack to help with some of the inflammation which is overall mild. Dyspepsia 10/04/2019 Assessment & Plan (10/04/2019 10:57 AM CDT): Pt says dyspepsia is somewhat better but not completely gone. He has been taking nortriptyline and pantoprazole for about 2 weeks. Pt told to continue these medications. Refills on these 2 medications sent in. Instructed to start on probiotic daily and use 1/2 to full dose miralax to promote better BM's. We discussed certain foods to avoid and he was given sheet on information about bloating/dyspepsia. Weight loss 10/04/2019 Assessment & Plan (10/04/2019 10:56 AM CDT): Pt says when bloating started, he is eating much less due to discomfort. Likely from loss of appetite. EGD was unremarkable. Most recent weights show steady around 165. Will monitor. BMI 25.0-25.9,adult 10/04/2019 Abdominal pain 09/12/2019 Overview (09/12/2019): Added automatically from request for surgery [id number] Assessment & Plan (10/04/2019 10:54 AM CDT): Resolved after starting nortriptyline and pantoprazole about 2 weeks ago. EGD showed mild gastritis, otherwise unremarkable. Biopsies were unremarkable. 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 Arthritis Social History Tobacco Use Types Packs/Day Years [...] on file Legal Sex Male 5:45 AM RUBY ON RAILS SOFTWARE DEVELOPER Gender Identity Not on file Sexual Orientation Not on file Last Filed Vital Signs Vital Sign Reading Time Taken Comments Blood Pressure 108/80 05/09/2024 7:52 AM RUBY ON RAILS SOFTWARE DEVELOPER Pulse 91 05/09/2024 7:52 AM RUBY ON RAILS SOFTWARE DEVELOPER Temperature 37.2 C (98.9 F) 02/23/2024 8:19 AM RUBY ON RAILS SOFTWARE DEVELOPER Respiratory Rate 18 02/23/2024 11:55 AM RUBY ON RAILS SOFTWARE DEVELOPER Oxygen Saturation 97% 05/09/2024 7:52 AM RUBY ON RAILS SOFTWARE DEVELOPER Inhaled Oxygen Concentration - - Weight 79.2 kg (174 lb 9.6 oz) 05/09/2024 7:52 A M RUBY ON RAILS SOFTWARE DEVELOPER Height 170.2 cm (5' 7 ) 05/09/2024 7:52 AM RUBY ON RAILS SOFTWARE DEVELOPER Body Mass Index 27.35 05/09/2024 7:52 AM RUBY ON RAILS SOFTWARE DEVELOPER Plan of Treatment Not on file Medical Devices Implanted Type Area Instructor Dramatic Arts Device Identifier Shelf Expiration Date Model / Serial / Lot [facility] KOWN [facility] Device Closure Vascade Od5 Fr Femoral Artery [id number] - [id number] Implanted:Qty: 1 on 02/23/2024 by Reinaldo House MD at [facility] [employer] K[employer] [facility] 12/14/2025 [id number] / / [id number] Procedures Procedure Name Priority Date/Time Associated Diagnosis Comments ELECTROCARDIOGRAM REPORT Routine 025 7:31 PM RUBY ON RAILS SOFTWARE DEVELOPER Heart failure, unspecified (HCC) Low left ventricular ejection fraction FLOWER (dyspnea on exertion) POCT LIPID PANEL Routine 04/11/2024 11:3 1 AM RUBY ON RAILS SOFTWARE DEVELOPER Lipid screening from Last 3 Months Results * Electrocardiogram Report (05/06/2024 7:31 PM RUBY ON RAILS SOFTWARE DEVELOPER) us Reinaldo House MD ECG ORDERABLES Claire l Result * POCT lipid panel (04/11/2024 11:31 AM RUBY ON RAILS SOFTWARE DEVELOPER) Cholesterol, POC <100 mg/dL Comment:Glucose 101 HDL, POC <15 mg/dL Triglycerides, POC 185 mg/dL LDL Cholesterol POC 48 mg/dL Chol/HDL Ratio, POC N/A Non-HDL Cholesterol, POC N/A mg/dL Cholesterol Total, POC <100 mg/dL Capillary blood 04/11/2024 1 1:31 AM RUBY ON RAILS SOFTWARE DEVELOPER us Reinaldo House MD POINT OF CARE TEST O RDERABLES Final Result from Last 3 Months Insurance [employer] OOS [employer] OOS Member Subscriber Plan / Payer (Ef fective 2021-Present) Name:Ronald Durant Relation to Subscriber:Spouse Name:MILO DURANT Date of :1983 (Home) Address: [place] [address] Payer ID:[id number] (NAIC) Type:[employer] Address: [address] BUREAU OF DISABILITY Advance Directives For more information, please contact: [phone] * Full Code (Latest Code Status on File) Date Activated Date Inactivated Comments 09/19/2019 12:43 PM 09/19/2019 6:49 PM * Full Code Date Activated Date Inactivated Comments 09/19/2019 12:43 PM 09/19/2019 12:43 PM * Full Code Date Activated Date Inactivated Comments 09/07/2019 3:52 PM 09/08/2019 9:25 PM Care Teams Project Admin Relationship Specialty Start Date End Date Nico Castillo MD PCP - General Family Practice 01/25/24 Miryam Willis MD Consulting Physician Gastroenterology 09/08/19
--- OUTSIDE RECORDS SUMMARY | 2024-06-30 03:06 | XMS_ITS | Clinical Summary ---
Author Organization [facility] Address [address] [place] [address] Care Team Providers Care Structural Steel Trades Worker Name Role Phone Miryam Willis MD Unavailable [phone] Nico Castillo MD Primary Care Provider [phone] Allergies No known active allergies Medications adalimumab [...] (09/12/2019): Added automatically from request for surgery [id number] Assessment & Plan (10/04/2019 10:54 AM CDT): Resolved after starting nortriptyline and pantoprazole about 2 weeks ago. EGD showed mild gastritis, otherwise unremarkable. Biopsies were unremarkable. 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 Arthritis Encounters Date Type Department Care Team Description 06/29/2024 Telephone [facility] Cardiology [address] [place] [address] [place] [phone] Reinaldo House MD 06/28/2024 Telephone [place] [address] [place] [phone] Reinaldo House MD 05/09/2024 8:00 AM MANAGER PROVIDER RELATIONS Office Visit [facility] Cardiology [address] [place] [address] [place] [phone] Reinaldo House MD Cardiomyopathy, idiopathic (HCC) (Primary Dx); Low left ventricular ejection fraction; FLOWER (dyspnea on exertion) 04/11/2024 11:15 AM MANAGER PROVIDER RELATIONS Office Visit [facility] Cardiology [address] [place] [address] [place] [phone] Reinaldo House MD Cardiomyopathy, idiopathic (HCC) (Primary Dx); Low left ventricular ejection fraction; FLOWER (dyspnea on exertion); Lipid screening from Last 3 Months Surgical History Surgery Date Site/Laterality Comments HERNIA REPAIR Medical History Medical History Date Comments Arthritis Heart failure, unspecified (HCC) DJD (degenerative joint disease) Anxiety and depression TBI (traumatic brain injury) (HCC) Ejection fraction < 50% Irritable bowel syndrome GERD (gastroesophageal reflux disease) Chronic pain disorder Family History Medical History Relation Name Comments COPD Mother Stroke Mother Throat cancer Other Relation Name Status Comments Father Alive Mother Alive Other Social History Tobacco Use Types Packs/Day Years [...] on file Legal Sex Male 5:45 AM MANAGER PROVIDER RELATIONS Gender Identity Not on file Sexual Orientation Not on file Obstetrics History Last Filed Vital Signs Vital Sign Reading Time Taken Comments Blood Pressure 108/80 05/09/2024 7:52 AM MANAGER PROVIDER RELATIONS Pulse 91 05/09/2024 7:52 AM MANAGER PROVIDER RELATIONS Temperature 37.2 C (98.9 F) 02/23/2024 8:19 AM MANAGER PROVIDER RELATIONS Respiratory Rate 18 02/23/2024 11:55 AM MANAGER PROVIDER RELATIONS Oxygen Saturation 97% 05/09/2024 7:52 AM MANAGER PROVIDER RELATIONS Inhaled Oxygen Concentration - - Weight 79.2 kg (174 lb 9.6 oz) 05/09/2024 7:52 A M MANAGER PROVIDER RELATIONS Height 170.2 cm (5' 7 ) 05/09/2024 7:52 AM MANAGER PROVIDER RELATIONS Body Mass Index 27.35 05/09/2024 7:52 AM MANAGER PROVIDER RELATIONS Plan of Treatment Health Maintenance Due Date Last Done Comments Hepatitis C Screening 1985 DTaP/Tdap/Td Vaccine (1 - Tdap) 1994 Varicella Vaccines (1 of 2 - 13+ 2-dose series) 1996 Hepatitis B Screening 2001 Regular Well Visit/Exam 18-64 2001 Pneumococcal vaccine <65 (1 of 2 - PCV) 2002 12/10/2010 Depression Screening 09/06/2020 09/07/2019 Influenza Vaccine (Season Ended) 2024 HPV Vaccines Aged Out No longer eligi ble based on patient's age to complete this topic Medical Devices Implanted Type Area Labor Relations Or Personnel Negotiator Device Identifier Shelf Expiration Date Model / Serial / Lot [employer] Device Closure Vascade Od5 Fr Femoral Artery [id number] - [id number] Implanted:Qty: 1 on 02/23/2024 by Reinaldo House MD at [facility] [employer] [facility] 12/14/2025 [id number] / / [id number] Procedures Procedure Name Priority Date/Time Associated Diagnosis Comments ELECTROCARDIOGRAM REPORT Routine 025 7:31 PM MANAGER PROVIDER RELATIONS Heart failure, unspecified (HCC) Low left ventricular ejection fraction FLOWER (dyspnea on exertion) POCT LIPID PANEL Routine 04/11/2024 11:3 1 AM MANAGER PROVIDER RELATIONS Lipid screening from Last 3 Months Results * Electrocardiogram Report (05/06/2024 7:31 PM MANAGER PROVIDER RELATIONS) Reinaldo House MD ECG ORDERABLES Claire l Result * POCT lipid panel (04/11/2024 11:31 AM MANAGER PROVIDER RELATIONS) Cholesterol, POC <100 mg/dL Comment:Glucose 101 HDL, POC <15 mg/dL Triglycerides, POC 185 mg/dL LDL Cholesterol POC 48 mg/dL Chol/HDL Ratio, POC N/A Non-HDL Cholesterol, POC N/A mg/dL Cholesterol Total, POC <100 mg/dL Capillary blood 04/11/2024 1 1:31 AM MANAGER PROVIDER RELATIONS Reinaldo House MD POINT OF CARE TEST O RDERABLES Final Result from Last 3 Months Insurance [email or web address] OOS [employer] OOS Member Subscriber Plan / Payer (Ef fective 2021-Present) Name:Ronald Durant Relation to Subscriber:Spouse Name:MILO DURANT Date of :1983 (Home) Address: [address] [place] [address] Payer ID:[id number] (NAIC) Type:[place] Address: [address] BUREAU OF DISABILITY Advance Directives For more information, please contact: [phone] * Full Code (Latest Code Status on File) Date Activated Date Inactivated Comments 09/19/2019 12:43 PM 09/19/2019 6:49 PM * Full Code Date Activated Date Inactivated Comments 09/19/2019 12:43 PM 09/19/2019 12:43 PM * Full Code Date Activated Date Inactivated Comments 09/07/2019 3:52 PM 09/08/2019 9:25 PM Care Teams Structural Steel Trades Worker Relationship Specialty Start Date End Date Nico Castillo MD PCP - General Family Practice 01/25/24 Miryam Willis MD Consulting Physician Gastroenterology 09/08/19
[2024-06-30 11:57] VITALS: BP 121/84; PULSE 97; RESP 16; TEMP 36.7; O2SAT 98
[2024-06-30 11:58] VITALS: BMI 27.8
--- NOTE | 2024-06-30 12:03 | WPDANESEPPF ---
Anes - Initial Pre Proc Eval Procedure: Operation Date: 06/30/24 13:00 Proposed Procedures p Esophagogastroduodenoscopy - Vasyl Cueva MD Date/Time: 06/30/24 12:03 Surgeon: Vasyl Cueva MD Pre Op Diagnosis: Gastroparesis, Nausea, GERD Patient Data Age: 39 Gender: M Height: 1.7 m Weight: 80.6 kg Last Vital Signs Temp 98.0 F 06/30/24 11:57 Pulse 97 06/30/24 11:57 Resp 16 06/30/24 11:57 BP 121/84 06/30/24 11:57 Pulse Ox 98 06/30/24 11:57 O2 Del Method Room Air 06/30/24 11:57 Allergies Allergy/AdvReac Type Severity Reaction Status Date / Time No Known Allergies Allergy Verified 06/30/24 11:55 Home Medications ?Medication ?Instructions ?Recorded ?Confirmed ?Type finasteride 5 mg tablet 5 mg PO DAILY 12/27/21 06/30/24 History sumatriptan succinate 100 mg 100 mg PO ONCE PRN migraine 04/09/23 06/27/24 Rx tablet (Imitrex) headache #10 tabs pantoprazole 40 mg tablet,delayed 40 mg PO QAM #90 tabs 08/26/23 06/27/24 Rx release Jardiance 12.5 mg PO DAILY 12/06/23 06/30/24 History metoprolol succinate 25 mg PO DAILY 12/06/23 06/30/24 History oxybutynin chloride 5 mg tablet 5 mg PO Q12H PRN bladder spasms 12/06/23 06/27/24 Rx #10 tabs tramadol 50 mg tablet 50 mg PO Q6H PRN pain #10 tabs 12/06/23 06/27/24 Rx amitriptyline 75 mg tablet 75 mg PO QHS #90 tabs 06/02/24 06/30/24 Rx erythromycin 250 mg tablet 250 mg PO Q8H PRN bloating #120 06/02/24 06/30/24 Rx tabs pantoprazole 40 mg tablet,delayed 40 mg PO QAM #90 tabs 06/02/24 06/30/24 Rx release vericiguat 5 mg tablet (Verquvo) 5 mg PO DAILY 06/02/24 06/30/24 History zolpidem 12.5 mg tablet,extended 12.5 mg PO QHS PRN insomnia #30 06/07/24 06/27/24 Rx release,multiphase tabs hydralazine 10 mg tablet 10 mg PO DAILY 06/27/24 06/30/24 History Patient hx anesthesia problems: none Family hx anesthesia problems: none Results Review: All pre-operative results and documents have been reviewed as part of the pre-operative evaluation. [facility] Past Medical History Medical History (Updated 06/02/24 @ 11:11 by Madelin Chicas, AUTOMOTIVE DESIGN DRAFTER) Hx of adenomatous colonic polyps Anxiety and depression Degenerative joint disease Ankylosing spondylitis Adenomatous colon polyp Stool mucus Irritable bowel syndrome with constipation Constipation GERD (gastroesophageal reflux disease) (~06/02/24) Gastroparesis Surgical History Surgical History H/O excision of mass 08/09/20 excision of back cyst H/O umbilical hernia repair 1993 Family History Family History Mother Cerebrovascular accident COPD (chronic obstructive pulmonary disease) Other Diabetes mellitus Throat cancer Social History Social History Smoking status: Never smoker Second hand tobacco smoke exposure: Yes Alcohol intake: never Substance use: never Substance use type: does not use Do You Feel Safe in your Home?: Yes Lack of Transportation: No Lack of Food: Never True Current Housing: I Have Housing Concerned About Future Housing: No Difficulty Paying Gas/Electric Bills: No Difficulty Paying for Meds: No Currently Unemployed: No Education: High School Diploma/GED Difficulty w/ Childcare or Family Care: No Living arrangements: with family Occupation/Education: occupation 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 Informed Consent: The patient's anesthetic plan and its attendant risks and benefits were discussed with the patient/family/POA. Questions were solicited and answers provided to the satisfaction of the patient/family/POA.
[2024-06-30] MEDS: LACTATED RINGERS 1,000 ML 150 ML IV CONT (12:11)
--- NOTE | 2024-06-30 12:12 | WPDHPUPDATE1 ---
History and Physical Update Update Date/Time: 06/30/24 12:12 History and Physical has been reviewed, including an updated exam of the patient. There are NO changes in the patient's condition. Risks, benefits, and alternatives have been discussed and questions answered. Patient agrees to proceed with procedure.
[2024-06-30 12:18] VITALS: BP 90/57; PULSE 79; RESP 17; O2SAT 95
[2024-06-30 12:28] VITALS: BP 91/59; PULSE 82; RESP 19; O2SAT 97
[2024-06-30 12:38] VITALS: BP 93/54; PULSE 78; RESP 18; O2SAT 98
== END 2024-06-30 12:48 | disposition home or self-care (01) ==
PROVIDERS: PCP Family Medicine; Referring Provider Nurse Practitioner; Visit Provider Internal Medicine Gastroenterology
PROC: 0DJ08ZZ Inspection of Upper Intestinal Tract, Via Natural or Artificial Opening Endoscopic (ICD-10-PCS; CPT 43239; principal; 2024-06-30 13:00)
DX: K21.00 Gastro-esophageal reflux disease with esophagitis, without bleeding (principal); K31.89 Other diseases of stomach and duodenum; K58.1 Irritable bowel syndrome with constipation; F41.8 Other specified anxiety disorders; I50.9 Heart failure, unspecified; M19.90 Unspecified osteoarthritis, unspecified site; Z79.84 Long term (current) use of oral hypoglycemic drugs; Z79.891 Long term (current) use of opiate analgesic; Z79.52 Long term (current) use of systemic steroids; Z98.890 Other specified postprocedural states; Z96.0 Presence of urogenital implants; Z86.0100 Personal history of colon polyps, unspecified; Z80.1 Family history of malignant neoplasm of trachea, bronchus and lung; Z82.49 Family history of ischemic heart disease and other diseases of the circulatory system
CPT/HCPCS: 43239; 88305; J2704; J7120

== ENCOUNTER 2025-01-17 12:04 | Outpatient (CLI) | payer BC, SELFPAY ==
--- OUTSIDE RECORDS SUMMARY | 2025-01-17 12:20 | XMS_ITS | Clinical Summary ---
Author Organization [facility] Address [address] [place] [address] Care Team Providers Care Rotary Operator Name Role Phone Miryam Willis MD Unavailable [phone] Nico Castillo MD Primary Care Provider [phone] Allergies No known active allergies Medications nortriptyline (PAMELOR) 10 mg capsule TAKE 1 [...] a day 15 mL [address] (PROTONIX) 40 mg EC tablet Take 1 tablet (40 mg total) by mouth 2 (two) times a day 60 tablet 3 2 Active empagliflozin (JARDIANCE) 25 mg tablet 0.5 [...] the skin every 30 (thirty) days Active lidocaine (LIDODERM) 5 % Place 1 [...] pills daily 60 tablet 6 5 Active SUMAtriptan (IMITREX) 25 mg tabletIndication s:Migraine Take 1 tablet (25 mg total) by mouth once as needed for migraine May repeat dose once in 2 hours if no relief. Do not exceed 2 doses in 24 hours. Active Active Problems Problem Noted Date Diagnosed [...] (09/12/2019): Added automatically from request for surgery [id number] Assessment & Plan (10/04/2019 10:54 AM CDT): Resolved after starting nortriptyline and pantoprazole about 2 weeks ago. EGD showed mild gastritis, otherwise unremarkable. Biopsies were unremarkable. 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 Arthritis Encounters Date Type Department Care Team Description 01/06/2025 Orders Only [facility] [address] [place] [address] Farzaneh Moss MD Genetic testing 01/05/2025 4:35 [place] [address] Genetic testing 10/31/2024 Telephone [facility] [address] [place] [address] [place] [address] Susannah Cannon CGC from Last 3 Months Surgical History Surgery Date Site/Laterality Comments HERNIA REPAIR Medical History Medical History Date Comments Arthritis Heart failure, unspecified ([facility]) DJD (degenerative joint disease) Anxiety and depression TBI (traumatic brain injury) ([facility]) Ejection fraction < 50% Irritable bowel syndrome GERD (gastroesophageal reflux disease) Chronic pain disorder Family History Medical History Relation Name Comments COPD Mother Stroke Mother Throat cancer Other Relation Name Status Comments Father Alive Mother Alive Other Social History Tobacco Use Types Packs/Day Years Used Date Smoking Tobacco: Never Smokeless Tobacco: Never Tobacco Cessation:Counseling Given: Not Answered Alcohol Use Standard Drinks/Week Comments No 0 [...] on file Legal Sex Male 5:45 AM [employer] Gender Identity Not on file Sexual Orientation Not on file Last Filed Vital Signs Vital Sign Reading Time Taken Comments Blood Pressure 100/72 08/22/2024 9:29 AM CDT Pulse 95 08/22/2024 9:29 AM CDT Temperature 37.2 C (98.9 F) 02/23/2024 8:19 AM [employer] SUPERVISOR Respiratory Rate 18 02/23/2024 11:55 AM [employer] SUPERVISOR Oxygen Saturation 96% 08/22/2024 9:29 AM CDT Inhaled Oxygen Concentration - - Weight 79.4 kg (175 lb) 08/22/2024 9:29 AM CDT Height 170.2 cm (5' 7) 08/22/2024 9:29 AM CDT Body Mass Index 27.41 08/22/2024 9:29 AM CDT Plan of Treatment Health Maintenance Due Date Last Done Comments Hepatitis C Screening 1983 Varicella Vaccines (1 of 2 - 13+ 2-dose series) 1996 Hepatitis B Screening 2001 Regular Well Visit/Exam 18-64 2001 Pneumococcal vaccine <65 (1 of 2 - PCV) 2002 1 HPV Vaccines (1 - 3-dose SCDM series) 2010 Depression Screening 09/06/2020 09/07/2019 Influenza Vaccine (#1) 2024 DTaP/Tdap/Td Vaccine (2 - Td or Tdap) 01/10/202906/2018 Medical Devices Implanted Type Area Soil Surveyor Device Identifier Shelf Expiration Date Model / Serial / Lot [facility] Device Closure Vascade Od5 Fr Femoral Artery [id number] - [id number] Implanted:Qty: 1 on 02/23/2024 by Reinaldo House MD at [facility] 12/14/2025 [id number] / / [id number] Insurance [employer]OS [employer] Advance Directives For more information, please contact: [phone] * Full Code (Latest Code Status on File) Date Activated Date Inactivated Comments 09/19/2019 12:43 PM 09/19/2019 6:49 PM * Full Code Date Activated Date Inactivated Comments 09/19/2019 12:43 PM 09/19/2019 12:43 PM * Full Code Date Activated Date Inactivated Comments 09/07/2019 3:52 PM 09/08/2019 9:25 PM Care Teams Rotary Operator Relationship Specialty Start Date End Date Nico Castillo MD PCP - General Family Practice 01/25/24 Miryam Willis MD Consulting Physician Gastroenterology 09/08/19
--- OUTSIDE RECORDS SUMMARY | 2025-01-17 12:20 | XMS_ITS | Patient Health Record ---
Author Organization [facility] As [employer] [facility] Address [address] [place] [address] Support Name Relationship Address Phone JEROME LIZ Emergency Contact Unknown ZAIRE CANO Guarantor Unknown [phone] Reason For Referral No Information Medications Medication SIG (Take, Route, Frequency, Duration) Notes Start Date End Date Status Erythromycin Base 250 MG Tablet Oral Active predniSONE 5 MG Tablet Oral Active methylPREDNISolone 4 MG Tablet Therapy Pack Oral Active Paxlovid (300/100) 20 x 150 MG & 10 x 100MG Tablet Therapy Pack Oral *Reorder from [facility] for eRx and Interaction Alerts* Active Vitamin B-12 1000 MCG Tablet Oral Active Metoclopramide HCl 5 MG Tablet Oral Active busPIRone HCl 10 MG Tablet Oral Active Finasteride 5 MG Tablet Oral Active Ramelteon 8 MG Tablet Oral Active Zolpidem Tartrate ER 12.5 MG Tablet Extended Release Oral Active Folic Acid 1 MG Tablet Oral Active Temazepam 30 MG Capsule Oral Active hydrOXYzine HCl 25 MG Tablet Oral Active Escitalopram Oxalate 10 MG Tablet Oral Active Pantoprazole Sodium 40 MG Tablet Delayed Release Oral Activ e Venlafaxine HCl ER 37.5 MG Capsule Extended Release 24 Hour Oral Active Doxycycline Hyclate 100 MG Tablet Oral Active traZODone HCl 50 MG Tablet Oral Active Ipratropium Clune 0.06 % Solution Nasal Active Social History Social History Additional Details Category Social Info Options Details Migrated Social History Migrated Social History Tobacco Years: Never smoker 04/21/2022 Plan Of Treatment No Information Insurance Providers Payer Name Payer Address Payer Phone Subscriber Number Group Number Insured Name Patient Relationship to Insured Coverage Start Date Coverage End Date [facility] [facility] [address] [place] [address] [id number] LIZ VIVEROS Spouse - patient is the spouse of the insured
[2025-01-17 17:46] LABS: Thyroid Stimulating Hormone Reflex 1.600 uIU/mL (0.465-4.68)
== END 2025-01-17 12:05 | disposition home or self-care (01) ==
LOC: ANHLAB 12:05
PROVIDERS: PCP Family Medicine; Visit Provider Nurse Practitioner
DX: K58.1 Irritable bowel syndrome with constipation (principal); R63.4 Abnormal weight loss
CPT/HCPCS: 36415; 84443